=== PATIENT | female | born 1990 | race Caucasian/White ===

== ENCOUNTER 2025-01-13 07:44 | Emergency (ER) | payer OTHER, SELFPAY ==
[2025-01-13 07:49] VITALS: BP 134/92; PULSE 91; RESP 16; TEMP 37.1; O2SAT 97; BMI 31.0
--- NOTE | 2025-01-13 08:35 | ED.PSYCH ---
HPI - Psych General Chief Complaint: Psychiatric Symptoms Stated Complaint: depression Time Seen by Provider: 01/13/25 08:00 Source: patient and old records reviewed Mode of arrival: ambulatory Limitations: no limitations History of Present Illness ED Provider: BROOKE HPI Narrative: 34 yo female with PMH of depression here with worsening symptosm and making statements such as the world would be better off without her. No hx of self harm. She reports negative people at her new job are bringing her down and causing this. She was recently treated for R foot avulsion injury and is in boot. No other others MD complaint: feels depressed Onset (ago): week(s) Duration: constant History of same: Yes Relieving factors: none Context: significant life stressor Associated psychiatric symptoms: depression Associated symptoms: denies other symptoms Treatments prior to arrival: none Related Data Home Medications ?Medication ?Instructions ?Recorded ?Confirmed sertraline 100 mg tablet 100 mg PO DAILY 01/13/25 01/13/25 Allergies Allergy/AdvReac Type Severity Reaction Status Date / Time No Known Allergies Allergy Verified 01/13/25 07:49 Review of Systems Review of Systems: Constitutional : No Fever, No Chills ENT/Mouth : No Ear Pain, No Nasal Congestion, No sore throat Eyes: No Eye Pain, No Swelling, No Redness Cardiovascular : No Chest Pain, No SOB Respiratory : No Cough, No Sputum, No Dyspnea Gastrointestinal : No Nausea, No Vomiting, No Diarrhea, No Hematochezia, No Melena Genitourinary : No Dysuria, No Urinary Frequency, No Hematuria Musculoskeletal : No Myalgias Skin : No Skin Lesions, No rash Neuro : No Weakness, No Numbness, No Paresthesias, No Dizziness, No Headache Psych : positive Anxiety, positive Depression, no SI/HI Heme/Lymph: No Lymphadenopathy Endocrine : No Polyuria, No Polydipsia All other systems reviewed and are negative [facility] Past Medical History Attestation statement: The following information was validated with the patient. Source: old records reviewed Medical History Depression Social History Social History (Updated 01/13/25 @ 08:52 by Maribel Berrios DO) Patient Tobacco Use Status: Never used Tobacco Smoked in Last 30 Days: No Use of substances other than those prescribed or required for medical reasons: No Advance Directives: No Advance Directives Information Provided: Yes Patient : No Physical Exam Vital Signs: Vital Signs: Last Vital Signs Temp 98.8 F 01/13/25 07:49 Pulse 91 01/13/25 07:49 Resp 16 01/13/25 07:49 BP 134/92 H 01/13/25 07:49 Pulse Ox 97 01/13/25 07:49 O2 Del Method Room Air 01/13/25 07:49 BMI result Body Mass Index 31.0 Appearance: Alert. Oriented X3. No acute distress. Eyes: Pupils equal, round and reactive to light. ENT: Pharynx normal. Neck: Normal inspection. Neck supple. CVS: Normal heart rate and rhythm. Pulses normal. Respiratory: No respiratory distress. Breath sounds normal. Abdomen: Soft and nontender. Skin: Skin warm and dry. Normal skin color. Normal skin turgor. Extremities: No lower extremity edema. No calf ttp R foot walking boot Neuro: Oriented X 3. No motor deficit. No sensory deficit. CN2-12 intact Course Course Course Narrative: Time: 10:48 Date: 01/13/25 Provider: Maribel Berrios DO Physician observation ended at 1048am. Patient has been cleared for discharge by the CARE team. Will follow up as an outpatient. partial hospitalization program Medical Decision Making Medical Decision Making [facility] Narrative: 34 yo female with PMH of depression here with worsening thoughts of depression and passive SI related to job - no medical concerns is in R walking boot for avulsion fracture but doing well at this time labs and CARE team consult. Differential Diagnosis Differential Diagnoses: The differential diagnosis associated with the presentation includes depression, SI Admission/Observation Consideration of admission/observation: Escalation of care including admission/observation considered physician observation started at 840am pending CARE team Consult Healthcare Provider Management of the patient was discussed with: Behavioral Health Provider Lab Data [facility] Lab Attestation statement: I reviewed the patient's lab results. urine has no bacteria and no nitrate she has no urinary symptoms will wait on culture 01/13/25 08:52 01/13/25 08:52 Labs: Lab Results 01/13/25 01/13/25 Range/Units 08:34 08:52 WBC 4.6 L (4.8-10.8) X10*3/uL RBC 4.63 (4.20-5.50) X10*6/uL Hgb 13.5 (12.0-16.0) g/dl Hct 40.3 (37.0-47.0) % MCV 87.0 (80.0-98.0) fL MCH 29.2 (27.0-33.0) pg MCHC 33.5 (31.0-35.0) g/dl RDW 12.6 (11.0-16.0) % Plt Count 237 (160-400) X10*3/uL MPV 10.8 (9.4-12.3) fL Absolute Nucleated RBC 0.000 (0.0-0.012) X10*3/uL Nucleated RBC % (auto) 0.0 (0.0-0.2) /100WBC Sodium 139 (135-145) mmol/L Potassium 3.8 (3.3-5.1) mmol/L Chloride 110 H (96-108) mmol/L Carbon Dioxide 23 (22-29) mmol/L Anion Gap 10 L (12-20) BUN 13 (9-16) mg/dL Creatinine 0.70 (0.5-1.4) mg/dL Estim Creat Clear Calc 131.6 Estimated GFR > 60 Random Glucose 124 H (60-115) mg/dL Calcium 11.0 H (8.4-10.2) mg/dL Urine Color Yellow Urine Appearance Clear Urine pH 5.5 (5.0-9.0) Ur Specific [place] 1.025 (1.005-1.025) Urine Protein Trace (Neg-Trace) mg/dL Urine Glucose (UA) Negative (Negative) mg/dL Urine Ketones Trace (Negative) mg/dL Urine Blood Trace H (Negative) Urine Nitrite Negative (Negative) Ur Leukocyte Esterase Moderate (2+) H (Negative) Urine RBC 3-5 H (0-2) /HPF Urine WBC >50 H (0-5) /HPF Ur Squamous Epith Cells 0-2 (0-2) /HPF Urine Bacteria None Seen (None Seen) Hyaline Casts 0-2 (0-2) /LPF Urine Test NEGATIVE (NEGATIVE) Urine Opiates Screen Not Detected (Not Detect) Ur Buprenorphine Scrn Not Detected (Not Detect) ng/mL Ur Oxycodone Screen Not Detected (Not Detect) ng/mL Urine Methadone Screen Not Detected (Not Detect) ng/mL Urine Fentanyl Screen Not Detected (Not Detect) Ur Barbiturates Screen Not Detected (Not Detect) Ur Phencyclidine Scrn Not Detected (Not Detect) Ur Amphetamines Screen Not Detected (Not Detect) U Benzodiazepines Scrn Not Detected (Not Detect) Urine Cocaine Screen Not Detected (Not Detect) U Marijuana (THC) Screen Not Detected (Not Detect) External Record Review External record reviewed: Outpatient record Discharge Plan Discharge Clinical Impression: Depression Qualifiers: Depression Type: unspecified Qualified Code(s): F32.A - Depression, unspecified Patient Disposition: Home, Self-Care Instructions: Depression (ED) Additional Instructions: You were seen in our Emergency Department today for treatment of a behavioral health issue. It is important after your visit that you follow up with either your behavioral health provider or a primary care doctor within 7 days.? If you have trouble finding a therapist you can reach out to [address] [phone] The National Suicide and Crisis Lifeline can be reached 7 days a week 24 hours a day.? Call 988 to speak with someone.? Return for any worsening symptoms or concerns such as thoughts of self harm or harm to others. Please call 911 if you feel your mental health is worsening.? Prescriptions: No Action sertraline 100 mg tablet 100 mg PO DAILY Stand Alone Forms: Work/School Release Interventions: [place]-Suicide Risk Severity Scale Last Done: 01/13/25 09:39 Print Language: Algerian
[2025-01-13 08:50] LABS: Appearance Urine Clear; Color Urine Yellow; Glucose Urine UA Negative (Negative); Leukocyte Esterase Urine Moderate (2+) (Negative); Nitrite Urine Negative (Negative); PH 5.5 (5.0-9.0); Specific Gravity - Urine 1.025 (1.005-1.025); UMIC TRIGGER UACC YES; Urine Blood Trace (Negative); Urine Ketones Trace mg/dL (Negative); Urine Protein Trace mg/dL (Neg-Trace)
[2025-01-13 08:51] LABS: UPreg QC Valid YES; Urine Pregnancy NEGATIVE (NEGATIVE)
[2025-01-13 08:55] LABS: Bacteria Urine None Seen (None Seen); Hyaline Casts Urine 0-2 /LPF (0-2); Squamous Epithelial Cell Urine 0-2 /HPF (0-2); UACC Culture Trigger YES; WBC Urine >50 /HPF (0-5)
--- OUTSIDE RECORDS SUMMARY | 2025-01-13 08:58 | XMS_ITS | Encounter Summary ---
Author Organization [facility] Address [address] [place] [address] Care Team Providers Care Director Of Grants Name Role Phone Physician, Pcp Unknown Primary Care Provider Claudia vailable Encounter Details Date Type Department Care Team (Late Contact Info) Description 12/17/2024 Lab Requisition [facility] - Main Lab [address] [place] [address] Abimael Rivers MD [address] [address] Hematuria, unspecified Social History Tobacco Use Types Packs/Day Years Used Date Smoking Tobacco: Never Assessed Comments No Sex and Gender Information Value Date Recorded Sex Assigned at Female 12/13/2024 5:27 PM EDT Legal Sex Female 1:47 PM EDT Gender Identity Female 12/13/2024 5:27 PM EDT Sexual Orientation Choose not to disclose 2024 5:27 PM EDT documented as of this encounter Plan of Treatment Upcoming Encounters Date Type Department Care Team (Late st Contact Info) Description 02/02/2025 8:00 AM EDT Appointment [facility] Scan [address] [place] [address] documented as of this encounter Procedures Procedure Name Priority Date/Time Associated Diagnosis Comments CULTURE URINE Routine 12/17/2024 2:39 PM EDT Hematuria, unspecified documented in this encounter Results * Culture urine (12/17/2024 2:39 PM EDT) Culture, Urine 50,000-99,000 CFU/mL Mixed urogenital samm, no uropathogens present. Suggest repeat specimen if clinically indicated. 12/18/2024 2:54 PM EDT [facility] Urine Urine specimen from urethra / Unknown 12/17/2024 2:39 PM EDT 12/17/2024 6:24 PM EDT us Abimael Rivers MD LAB MICROBIOLOGY - GENER AL ORDERABLES Final Result [facility] [address] [place] [address], documented in this encounter Visit Diagnoses Diagnosis Hematuria, unspecified documented in this encounter Care Teams Director Of Grants Relationship Specialty Start Date End Date Physician, Pcp Unknown PCP - General 12/13/24 documented as of this encounter
--- OUTSIDE RECORDS SUMMARY | 2025-01-13 08:58 | XMS_ITS | Encounter Summary ---
Author Organization [facility] Address [address] [place] [id number] Phone Care Team Providers Care Manager Photo Name Role Phone Adamaris Wolf DO Primary Care Provider [phone] Encounter Details Date Type Department Care Team (Late st Contact Info) Description 05/15/2017 Conversion Encounter [facility] [place] [address] [place] [address] Social History Tobacco Use Types Packs/Day Years Used Date Smoking Tobacco: Never Comments:Never smoker Comments Unknown Sex and Gender Information Value Date Recorded Sex Assigned at Not on file Legal Sex Female 4:36 PM EDT Gender Identity Not on file Sexual Orientation Not on file documented as of this encounter Plan of Treatment Not on file documented as of this encounter Visit Diagnoses Not on filedocumented in this encounter Care Teams Manager Photo Relationship Specialty Start Date End Date Adamaris Wolf DO [address] [place] [address] PCP - General 05/09/17 01/14/23 documented as of this encounter
--- OUTSIDE RECORDS SUMMARY | 2025-01-13 08:58 | XMS_ITS | Clinical Summary ---
Author Organization [facility] Address [address] [place] [address] Phone Care Team Providers Care Media Reporter Name Role Phone Unavailable Primary Care Provider Unavailabl e Immunizations Immunization Administration Dates Next Due DTP 05/09/1997, 3,02/08/1992,12/09,1991 Hep B, ped/adol 05/09/1997,1996,01/19/1996 Hib (PRP-T) 11/13/1992, 2,1991,10/11 Influenza Split 07/12/2011 Influenza, injectable, trivalent 07/24/2007 MMR 01/19/1996,11/13/1992 Meningococcal Conj (Menactra) MCV4P 07/24/2007 OPV 05/09/1997, 3,1991,10/11 Td (adult) (MBL), 2 Lf tetan us toxoid, PF, adsorbed 02/03/2003 Tdap 07/24/2007 Varicella 08/03/2008,12/06/1999 Family History Relation Name Status Comments Brother Brother: Autism Father Alive Father: Alive a nd well Mother Mother: depress ion Social History Tobacco Use Types Packs/Day Years Used Date Smoking Tobacco: Never Comments:Never smoker Comments Unknown Sex and Gender Information Value Date Recorded Sex Assigned at Not on file Legal Sex Female 4:36 PM EDT Gender Identity Not on file Sexual Orientation Not on file Last Filed Vital Signs Vital Sign Reading Time Taken Comments Blood Pressure 112/74 07/12/2011 12:00 AM EDT Pulse 80 07/12/2011 12:00 AM EDT Temperature 36.2 ??C (97.1 ??F) 07/12/2011 12:00 AM E DT Respiratory Rate - - Oxygen Saturation - - Inhaled Oxygen Concentration - - Weight 67.6 kg (149 lb) 07/12/2011 12:00 AM EDT Height 166.9 cm (5' 5.7 ) 07/12/2011 12:00 AM ED T Body Mass Index 24.27 07/12/2011 12:00 AM EDT Plan of Treatment Health Maintenance Due Date Last Done Comments DTaP,Tdap,and Td Vaccines (7 - Td or Tdap) 07/24/2017 07/24/2007, 02/03/2003, 05/09/1997, Additional history exists Influenza Vaccines (#1) 2024 07/12/2011, 07/24 COVID-19 Vaccine ( season) 2024 HIB Vaccines Completed 11/13/1992, 01/27, 1991, Additional history exists MMR Vaccines Completed 01/19/1996, 11/13/1992 Hepatitis B Vaccines Completed 05/09/1997, 1996, 01/19/1996 IPV Vaccines Completed 05/09/1997, 01/27, 1991, Additional history exists Meningococcal Vaccine Aged Out 07/24/2007 No ortiz qi eligible based on patient's age to complete this topic Varicella Vaccines Completed 08/03/2008, 12/06/1999 HPV Vaccines Aged Out No longer eligi ble based on patient's age to complete this topic Hepatitis A Vaccines Aged Out No long er eligible based on patient's age to complete this topic Men B Vaccine Aged Out No longer elig ible based on patient's age to complete this topic Pneumococcal Vaccine Aged Out No long er eligible based on patient's age to complete this topic
--- OUTSIDE RECORDS SUMMARY | 2025-01-13 08:58 | XMS_ITS | Encounter Summary ---
Author Organization [facility] Address [address] [place] [phone] Phone Care Team Providers Care Beamer Helper Name Role Phone Adamaris Wolf DO Primary Care Provider [phone] Encounter Details Date Type Department Care Team (Late st Contact Info) Description 06/28/2013 Documentation EM Family Medicine [address] [place] [address] Family Medicine, Physician [address] [place], [place] [id number] Social History Tobacco Use Types Packs/Day Years Used Date Smoking Tobacco: Never Assessed Comments Unknown Sex and Gender Information Value Date Recorded Sex Assigned at Not on file Legal Sex Female 4:36 PM EDT Gender Identity Not on file Sexual Orientation Not on file documented as of this encounter Plan of Treatment Not on file documented as of this encounter Visit Diagnoses Not on filedocumented in this encounter Care Teams Beamer Helper Relationship Specialty Start Date End Date Adamaris Wolf DO [address] [place] [id number] PCP - General 05/09/17 01/14/23 documented as of this encounter
--- OUTSIDE RECORDS SUMMARY | 2025-01-13 08:59 | XMS_ITS | Clinical Summary ---
Author Organization [facility] Address [address] [place] [address] Phone Care Team Providers Care Welder Tech Name Role Phone Physician, Pcp Unknown Primary Care Provider Claudia vailable Allergies No known active allergies Medications naproxen (NAPROSYN) 500 mg tablet Take 1 tablet (500 mg total) by mouth 2 (two) times a day with meals for 7 days. 14 tablet 5 12/21/19 25 tamsulosin (FLOMAX) 0.4 mg 24 hr capsule Take 1 capsule (0.4 mg total) by mouth 1 (one) time each day for 10 days. Capsules should be taken 30 minutes following the same meal each day. 10 capsule 5 12/24/19 25 Encounters Date Type Department Care Team Description 12/17/2024 Lab Requisition [facility] - Main Lab [address] [place] [address] Abimael Rivers MD Hematuria, unspecified 12/13/2024 5:07 PM EDT - 12/13/2024 8:06 PM EDT Emergency [facility] Emergency [address] [place] [address] Right flank pain (Primary Dx) Discharge Disposition: Home or Self Care from Last 3 Months Medical History Medical History Date Comments Kidney stone Adhd Social History Tobacco Use Types Packs/Day Years Used Date Smoking Tobacco: Never Assessed Comments No Sex and Gender Information Value Date Recorded Sex Assigned at Female 12/13/2024 5:27 PM EDT Legal Sex Female 1:47 PM EDT Gender Identity Female 12/13/2024 5:27 PM EDT Sexual Orientation Choose not to disclose 2024 5:27 PM EDT Obstetrics History Last Filed Vital Signs Vital Sign Reading Time Taken Comments Blood Pressure 132/101 12/13/2024 6:23 PM EDT Pulse 72 12/13/2024 6:23 PM EDT Temperature 36.8 ??C (98.2 ??F) 12/13/2024 6:23 PM ED T Respiratory Rate 16 12/13/2024 6:23 PM EDT Oxygen Saturation 97% 12/13/2024 6:23 PM EDT Inhaled Oxygen Concentration - - Weight 86.2 kg (190 lb) 12/13/2024 1:52 PM EDT Height 170.2 cm (5' 7 ) 12/13/2024 1:52 PM EDT Body Mass Index 29.76 12/13/2024 1:52 PM EDT Plan of Treatment Upcoming Encounters Date Type Department Care Team (Late st Contact Info) Description 02/02/2025 8:00 AM EDT Appointment [facility] CT Scan [address] [place] [address] Health Maintenance Due Date Last Done Comments Pneumococcal Vaccine: Pediatrics (0 to 5 Years) and At-Risk Patients (6 to 64 Years) (1 of 2 - PCV) 2010 Cervical Cancer Screening: Pap Smear 2012 COVID-19 Vaccine (6 - Pfizer risk 2023- season) 2024 06/02/2024, 08/25/2022, 09/14/2021, Additional history exists Depression Screening 12/13/2024 HIV Screening 12/13/2024 Social Influencers of Health Screening 12/13/2024 DTaP,Tdap,and Td Vaccines (9 - Td or Tdap) 05/01/2030 05/01/2020, 07/24/2007, 02/03/2003, Additional history exists HIB Vaccines Completed 11/13/1992, 10/30, 02/13/1992, Additional history exists MMR Vaccines Completed 01/19/1996, 10/30, 1991 Hepatitis B Vaccines Completed 05/09/1997, 1996, 01/19/1996, Additional history exists IPV Vaccines Completed 05/09/1997, 01/27, 11/13/1992, Additional history exists Meningococcal ACWY Vaccine Aged Out 07/24/2007 N o longer eligible based on patient's age to complete this topic Varicella Vaccines Completed 08/03/2008, 12/06/1999 Influenza Vaccine Completed 06/02/2024, , 08/25/2022, Additional history exists Hepatitis C Screening Completed 07/15/2024 HPV Vaccines Aged Out No longer eligi ble based on patient's age to complete this topic Hepatitis A Vaccines Aged Out No long er eligible based on patient's age to complete this topic Meningococcal B Vaccine Aged Out No l onger eligible based on patient's age to complete this topic RSV Immunization Patients Under 20 months Aged Out No longer eligible based on patient's age to complete this topic Procedures Procedure Name Priority Date/Time Associated Diagnosis Comments CULTURE URINE Routine 12/17/2024 2:39 PM EDT Hematuria, unspecified US RETROPERITONEAL COMPLETE STAT 12/13/2024 7:02 PM EDT POC , URINE DIAGNOSTIC STAT 12/13/2024 2:18 PM EDT STEVENS URINE CULTURE TUBE STAT 12/14/19 2:18 PM EDT URINALYSIS WITH REFLEX MICROSCOPIC AND CULTURE STAT 12/13/2024 2:18 PM EDT URINALYSIS WITH REFLEX MICROSCOPIC AND CULTURE STAT 12/13/2024 2:18 PM EDT CULTURE URINE STAT 12/13/2024 2:18 PM EDT CBC WITH AUTO DIFFERENTIAL STAT 12/13/2024 1:58 PM EDT COMPREHENSIVE METABOLIC PANEL STAT 12/13/2024 1:58 PM EDT CBC AND DIFFERENTIAL STAT 12/13/2024 1:58 PM EDT from Last 3 Months Results * Culture urine (12/17/2024 2:39 PM EDT) Only the most recent of2 resultswithin the time period is included. Culture, Urine 50,000-99,000 CFU/mL Mixed urogenital samm, no uropathogens present. Suggest repeat specimen if clinically indicated. 12/18/2024 2:54 PM EDT [facility] Urine Urine specimen from urethra / Unknown 12/17/2024 2:39 PM EDT 12/17/2024 6:24 PM EDT us Abimael Rivers MD LAB MICROBIOLOGY - GENER AL ORDERABLES Final Result [facility] [address] [place] [address], [place] [phone] * US Retroperitoneal Complete (12/13/2024 7:02 PM EDT) Anatomical Region Laterality Modality Body Ultrasound 12/13/2024 7:39 PM EDT Impressions 12/13/2024 7:39 PM EDT 1. Normal kidneys. This document has been electronically signed by: Sourav Torres MD on 12/13/2024 19:39:01 Narrative 12/13/2024 7:39 PM EDT INDICATION: h/o kidney stones, right flank pain US Renal Comparison: None Findings: Right kidney normal size and echotexture, 10.4 cm length. Left kidney normal size and echotexture, 12.1 cm length. No collecting system dilatation of either kidney. Normal color Doppler. Urinary bladder is unremarkable. Bilateral ureteral jets are visualized. Procedure Note Sourav Torres MD - 12/13/2024 INDICATION: h/o kidney stones, right flank pain US Renal Comparison: None Findings: Right kidney normal size and echotexture, 10.4 cm length. Left kidney normal size and echotexture, 12.1 cm length. No collecting system dilatation of either kidney. Normal color Doppler. Urinary bladder is unremarkable. Bilateral ureteral jets are visualized. IMPRESSION: 1. Normal kidneys. This document has been electronically signed by: Sourav Torres MD on 12/13/2024 19:39:01 Simon GARCIA [facility] PROCEDURES Final R esult * (ABNORMAL) Urinalysis with reflex microscopic and culture (12/13/2024 2:18 PM EDT) Specific Hecker Urine 1.021 1.003 - 1.030 LAB URINALYSIS - AUTOMATED METHOD 12/13/2024 3:53 PM [facility] pH, Urine 5.5 5.0 - 8.0 pH LAB URINALYSIS - AUTOMATED METHOD 12/13/2024 3:53 PM [facility] Leukocytes, Urine Small(A) Negative LAB URINALYSIS - AUTOMATED METHOD 12/13/2024 3:53 PM [facility] Nitrite, Urine Negative Negative LAB URINALYSIS - AUTOMATED METHOD 12/13/2024 3:53 PM [facility] Protein, Urine Trace <=Trace mg/dL LAB URINALYSIS - AUTOMATED METHOD 12/13/2024 3:53 PM [facility] Glucose, Urine Negative Negative mg/dL LAB URINALYSIS - AUTOMATED METHOD 12/13/2024 3:53 PM [facility] Ketones, Urine Trace(A) Negative mg/dL LAB URINALYSIS - AUTOMATED METHOD 12/13/2024 3:53 PM [facility] Urobilinogen, Urine 0.2 0.2 - 1.0 mg/dL LAB URINALYSIS - AUTOMATED METHOD 12/13/2024 3:53 PM [facility] Bilirubin, Urine Negative Negative LAB URINALYSIS - AUTOMATED METHOD 12/13/2024 3:53 PM [facility] Blood, Urine Negative Negative LAB URINALYSIS - AUTOMATED METHOD 12/13/2024 3:53 PM [facility] RBC, Urine 4.3(H) 0 - 4 /HPF LAB URINALYSIS - AUTOMATED METHOD 12/13/2024 3:53 PM EDT [facility] WBC, Urine 11.6(H) 0 - 4 /HPF LAB URINALYSIS - AUTOMATED METHOD 12/13/2024 3:53 PM EDT [facility] Squamous Epithelial, Urine 43 0 - 60 /LPF LAB URINALYSIS - AUTOMATED METHOD 12/13/2024 3:53 PM EDT [facility] Bacteria, Urine Negative Negative /HPF LAB URINALYSIS - AUTOMATED METHOD 12/13/2024 3:53 PM EDT [facility] Hyaline Casts, Urine 0.4 0 - 3 /LPF LAB URINALYSIS - AUTOMATED METHOD 12/13/2024 3:53 PM EDT [facility] Urine Urine specimen obtained by clean catch procedure / Unknown Non-blood Collection / Unknown 12/13/2024 2:18 PM EDT 12/13/2024 2:47 PM EDT Amandeep Chapa MD LAB URINE ORDERABLES Joselyn l Result Performing Organization Address City/[facility]/ZIP Co de Phone Number [facility] [address] [place] [address], [place] [phone] * Stevens urine culture tube (12/13/2024 2:18 PM EDT) Extra Tube Hold for add-ons. 12/13/2024 4:01 PM EDT [facility] Comment:Auto resulted. Urine Urine specimen obtained by clean catch procedure / Unknown Non-blood Collection / Unknown 12/13/2024 2:18 PM EDT 12/13/2024 2:47 PM EDT us Amandeep Chapa MD LAB URINE ORDERABLES Joselyn l Result [facility] [address] [place] [address], [place] [phone] * POC , urine manually resulted (12/13/2024 2:18 PM EDT) Pathologist [facility] HCG, Ur POC Negative Negative POC hCG Int QC Pass? Yes Yes Urine Urine specimen obtained by clean catch procedure / Unknown 12/13/2024 2:18 PM EDT Amandeep Chapa MD POINT OF CARE TEST ENTER/ EDIT ORDERABLES Final Result * (ABNORMAL) CBC auto differential (12/13/2024 1:58 PM EDT) [facility] WBC 5.8 4.8 - 10.8 K/mcL LAB HEMETOLOGY METHOD 12/13/2024 2:57 PM EDT [facility] RBC 4.90(H) 3.80 - 4.80 M/mcL LAB HEMETOLOGY METHOD 12/13/2024 2:57 PM EDT [facility] Hemoglobin 14.0 11.5 - 16.0 g/dL LAB HEMETOLOGY METHOD 12/13/2024 2:57 PM EDT [facility] Hematocrit 43.0 35.0 - 47.0 % LAB HEMETOLOGY METHOD 12/13/2024 2:57 PM EDT [facility] MCV 88.5 79.0 - 98.0 FL LAB HEMETOLOGY METHOD 12/13/2024 2:57 PM EDT [facility] MCH 28.8 27.0 - 32.0 pcg LAB HEMETOLOGY METHOD 12/13/2024 2:57 PM EDT [facility] MCHC 32.6 32.0 - 37.0 g/dL LAB HEMETOLOGY METHOD 12/13/2024 2:57 PM EDT [facility] RDW 12.5 11.0 - 15.0 % LAB HEMETOLOGY METHOD 12/13/2024 2:57 PM EDT [facility] Platelets 263 130 - 400 K/mcL LAB HEMETOLOGY METHOD 12/13/2024 2:57 PM EDT [facility] MPV 11.3(H) 7.0 - 11.0 FL LAB HEMETOLOGY METHOD 12/13/2024 2:57 PM EDT [facility] NRBC 0.0 <1.0 % LAB HEMETOLOGY METHOD 12/13/2024 2:57 PM EDT [facility] NRBC Absolute 0.00 <0.10 K/mcL LAB HEMETOLOGY METHOD 12/13/2024 2:57 PM EDT [facility] Neutrophils Relative 64.6 % LAB HEMETOLOGY METHOD 12/13/2024 2:57 PM EDT [facility] Lymphocytes Relative 25.5 % LAB HEMETOLOGY METHOD 12/13/2024 2:57 PM EDT [facility] Monocytes Relative 7.9 % LAB HEMETOLOGY METHOD 12/13/2024 2:57 PM EDT [facility] Eosinophils Relative 1.0 % LAB HEMETOLOGY METHOD 12/13/2024 2:57 PM EDT [facility] Basophils Relative 0.7 % LAB HEMETOLOGY METHOD 12/13/2024 2:57 PM EDT [facility] Immature Granulocytes Relative 0.3 % LAB HEMETOLOGY METHOD 12/13/2024 2:57 PM EDT [facility] Neutrophils Absolute 3.75 1.50 - 7.00 K/mcL LAB HEMETOLOGY METHOD 12/13/2024 2:57 PM EDT [facility] Lymphocytes Absolute 1.48 1.00 - 5.00 K/mcL LAB HEMETOLOGY METHOD 12/13/2024 2:57 PM EDT [facility] Monocytes Absolute 0.46 0.20 - 1.00 K/mcL LAB HEMETOLOGY METHOD 12/13/2024 2:57 PM EDT [facility] Eosinophils Absolute 0.06 0.00 - 0.50 K/mcL LAB HEMETOLOGY METHOD 12/13/2024 2:57 PM EDT [facility] Basophils Absolute 0.04 0.00 - 0.20 K/mcL LAB HEMETOLOGY METHOD 12/13/2024 2:57 PM EDT [facility] Immature Granulocytes Absolute 0.02 0.00 - 0.03 K/mcL LAB HEMETOLOGY METHOD 12/13/2024 2:57 PM EDT [facility] Blood Venous blood specimen / Unknown Venipuncture / Unknown 12/13/2024 1:58 PM EDT 12/13/2024 2:46 PM EDT us Amandeep Chapa MD LAB BLOOD ORDERABLES Joselyn l Result [facility] [address] [place] [address], [place] [phone] * (ABNORMAL) Comprehensive metabolic panel (12/13/2024 1:58 PM EDT) Sodium 137 133 - 145 mmol/L LAB CHEMISTRY METHOD 12/13/2024 3:30 PM [facility] Potassium 4.7 3.5 - 5.5 mmol/L LAB CHE[facility]STR[facility] Chloride 105 96 - 110 mmol/L LAB CHEMISTRY METHOD 12/13/2024 3:30 PM EDT [facility] CO2 26 21 - 32 mmol/L LAB CHEMISTRY METHOD 12/13/2024 3:30 PM EDT [facility] Anion Gap 6 3 - 11 LAB CHEMISTRY METHOD 12/13/2024 3:30 PM EDT [facility] Glucose 98 70 - 100 mg/dL LAB CHEMISTRY METHOD 12/13/2024 3:30 PM EDT [facility] BUN 12 5 - 25 mg/dL LAB CHEMISTRY METHOD 12/13/2024 3:30 PM [facility] Creatinine 0.83 0.50 - 1.10 mg/dL LAB CHEMISTRY METHOD 12/13/2024 3:30 PM [facility] eGFR 96 >=60 mL/min/1. 73m2 LAB CHEMISTRY METHOD 12/13/2024 3:30 PM [facility] Comment:Calculation based on the??Chronic Kidney Disease Epidemiology Collaboration (CKD-EPI) equation refit??without adjustment for race. BUN/Creatinine Ratio 14.5 LAB CHEMISTRY METHOD 12/13/2024 3:30 PM [facility] Calcium 11.8(H) 8.5 - 10.5 mg/dL LAB CHEMISTRY METHOD 12/13/2024 3:30 PM [facility] AST (SGOT) 20 10 - 42 unit/L LAB CHEMISTRY METHOD 12/13/2024 3:30 PM [facility] ALT (SGPT) 29 10 - 60 unit/L LAB CHEMISTRY METHOD 12/13/2024 3:30 PM [facility] Alkaline Phosphatase 99 42 - 121 unit/L LAB CHEMISTRY METHOD 12/13/2024 3:30 PM [facility] Total Protein 8.2(H) 6.0 - 8.0 g/dL LAB CHEMISTRY METHOD 12/13/2024 3:30 PM [facility] Albumin 3.9 3.2 - 5.0 g/dL LAB CHEMISTRY METHOD 12/13/2024 3:30 PM [facility] Total Bilirubin 0.3 0.0 - 1.4 mg/dL LAB CHEMISTRY METHOD 12/13/2024 3:30 PM [facility] Blood Venous blood specimen / Unknown Venipuncture / Unknown 12/13/2024 1:58 PM EDT 12/13/2024 2:46 PM EDT us Amandeep Chapa MD LAB BLOOD ORDERABLES Joselyn l Result [facility] [address] [place] [address], [place] [phone] from Last 3 Months Insurance MEDICAID - [place] [facility] [address] [place] [address] Care Teams Welder Tech Relationship Specialty Start Date End Date Physician, Pcp Unknown PCP - General 12/13/24
--- OUTSIDE RECORDS SUMMARY | 2025-01-13 08:59 | XMS_ITS | Encounter Summary ---
Author Organization [facility] Address [address] [place] [phone] Phone Care Team Providers Care Nutrition Director Name Role Phone Adamaris Wolf DO Primary Care Provider [phone] Encounter Details Date Type Department Care Team (Late st Contact Info) Description 07/16/2011 Documentation EM Family Medicine [address] [place] [address] Family Medicine, Physician [address] [place], [place] [id number] Social History Tobacco Use Types Packs/Day Years [...] on filedocumented in this encounter Care Teams Nutrition Director Relationship Specialty Start Date End Date Adamaris Wolf DO [address] [place] [id number] PCP - General 05/09/17 01/14/23 documented as of this encounter
--- OUTSIDE RECORDS SUMMARY | 2025-01-13 08:59 | XMS_ITS | Referral Summary ---
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 Hepatitis B Vaccine, Pediatr ic or Pediatric/Adolescent Dosage 05/09/1997,1996,01/19/1996,09/08 Influenza trivalent, PF MDCK (FLUCELVAX) vaccine 0.5 mL IM (for age 6 mo and older) 06/02/2024 Influenza, Injectable, Quadr ivalent, Preservative Free 08/18/2023,08/25/2022,05/23/2020 Influenza, Quadrivalent, Rec ombinant, Injectable, PF 07/19/2021 Influenza, Trivalent, MDV, Injectable 07/12/2011 ,07/24/2007 Influenza, Unspecified 06/13/2020 Measles, Mumps, and Rubella Vaccine 01/19/1996,0 11/13/1992,1991 Meningococcal Polysaccharide (Groups A, C, Y and W-135) Diphtheria Toxoid Conjugate Vaccine (MCV4P) 07/24/2007 Tetanus Toxoid, Reduced Diph theria Toxoid, and Acellular Pertussis Vaccine, Adsorbed 05/01/2020,07/24/2007 Tetanus and Diphtheria Toxoi ds, Adsorbed, Preservative Free (2 Lf of Tetanus Toxoid and 2 Lf of Diphtheria Toxoid) 02/03/2003 Trivalent Poliovirus Vaccine , Live, Oral 05/09/1997,02/07/1993,1991,10/11 Varicella Virus Vaccine 08/03/2008,12/06/1999 Social History Tobacco Use Types Packs/Day Years Used Date Smoking Tobacco: Never Smokeless Tobacco: Never Tobacco Cessation:Counseling Given: Not Answered Alcohol Use Standard Drinks/Week Comments Yes 1 (1 standard drink = 0.6 oz pur e alcohol) once per month [facility] Utilities Answer Date Recorded In the past 12 months has e [employer], gas, oil, or water [employer] threatened to shut off services in your home? No 10/05/2024 Hunger Vital Sign Answer Date Recorded Within the past 12 months, y ou worried that your food would run out before you got the money to buy more. Patient declined Within the past 12 months, t he food you bought just didn't last and you didn't have money to get more. Patient declined 03/2025 Transportation Answer Date Recorded In the past 12 months, has l ack of reliable transportation kept you from medical appointments, meetings, work or from getting things needed for daily living? No 10/05/2024 Housing Answer Date Recorded Housing Risk Low 1 10/05/2024 Housing Risk Medium 1 10/05/2024 Housing Risk High Not on file 10/05/2024 What is your living situation today? 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 Not on file Not on file Not on file Last Filed Vital Signs Vital Sign Reading Time Taken Comments Blood Pressure 112/76 11/12/2024 10:23 AM EST Pulse 88 11/12/2024 10:23 AM EST Temperature 37 ??C (98.6 ??F) 11/12/2024 10:23 AM EST Respiratory Rate 20 10/09/2022 8:36 AM EST Oxygen Saturation 97% 11/12/2024 10:23 AM EST Inhaled Oxygen Concentration - - Weight 90.3 kg (199 lb) 11/12/2024 10:23 AM EST Height 167.6 cm (5' 6 ) 10/06/2024 2:46 PM EST Body Mass Index 32.12 10/06/2024 2:46 PM EST Plan of Treatment Not on file Procedures * Due to [place] [employer] law, this organization might not be sharing negative HIV tests. Procedure Name Priority Date/Time Associated Diagnosis Comments POCT URINALYSIS DIPSTICK, NON-INTERFACED Routine 11/12/2024 4:59 PM EST Hematuria, unspecified type POCT AUTOMATED URINALYSIS DIPSTICK Routine 11/12/2024 10:34 AM EST Hematuria, unspecified type HEPATITIS C ANTIBODY W/REFLEX TO HCV RNA, QUANTITATIVE PCR Routine 07/15/2024 4:04 PM EDT Healthcare maintenance [facility] PAP W/HPV, MRNA, REFLEX HPV 16/18/[address]/NG Routine 05/01/2023 4:25 PM EDT Cervical cancer screening from Last 3 Months or Most Recently Relevant to Health Maintenance Results * Due to [place] [employer] law, this organization might not be sharing negative HIV tests. * (ABNORMAL) POCT Urinalysis dipstick (11/12/2024 4:59 PM EST) Color, UA Yellow Yellow Clarity, UA Clear Clear Glucose, UA Negative Negative mg/dL Bilirubin, UA Negative Negative Ketones, UA Negative Negative mg/dL Spec Grav, UA 1.010 1.005 - 1.030 Blood, UA Trace-intact (A) Negative pH, UA 6.0 5.0 - 8.5 Protein, UA Negative Negative mg/dL Urobilinogen, UA 0.2 0.2 - 1.0 E.U. /dL mg/dL Nitrite, UA Negative Negative Leukocytes, UA Small(A) Negative Urine 11/12/2024 4:59 PM EST Fariba Olivier MD POINT OF CARE TEST ORDERABLES Final Result * (ABNORMAL) POCT Automated Urinalysis Dipstick, interfaced (11/12/2024 10:34 AM EST) Color, POCT Yellow Yellow, Light Yellow, Dark Yellow 11/12/2024 10:38 AM EST [facility] Clarity, POCT Clear Clear 11/12/2024 10:38 AM EST [facility] Glucose, POCT Negative Negative mg/dL 11/12/2024 10:38 AM EST [facility] Bilirubin, POCT Negative Negative 11/12/2024 10:38 AM EST [facility] Ketones, POCT Negative Negative mg/dL 11/12/2024 10:38 AM EST [facility] Specific [place], POCT 1.010 1.005 - 1.030 11/12/2024 10:38 AM EST [facility] Blood, POCT Trace-intac t(A) Negative 11/12/2024 10:38 AM EST [facility] pH, POCT 6.0 5.0 - 8.0 11/12/2024 10:38 AM EST [facility] Protein, POCT Negative Negative mg/dL 11/12/2024 10:38 AM EST [facility] Urobilinogen, POCT 0.2 0.2, 1.0 EU/dL 11/12/2024 10:38 AM EST [facility] Nitrite, POCT Negative Negative 11/12/2024 10:38 AM EST [facility] Leukocyte Esterase, POCT Small(A) Negative 11/12/2024 10:38 AM EST [facility] Urine 11/12/2024 10:3 4 AM EST 11/12/2024 10:38 AM EST us Skip Owens MD LAB POCT ORDERABLES - DEVICE Final Result [facility] [address] [place] [address], [place] * Hepatitis C Antibody w/Reflex to HCV RNA, Quantitative PCR (07/15/2024 4:04 PM EDT) Hepatitis C Antibody Interpretation Nonreactive Nonreactive 07/15/2024 8:04 PM EDT [facility] Blood Structure of peripheral vein / Unknown Venipuncture / Unknown 07/15/2024 4:04 PM EDT 07/15/2024 4:04 PM EDT us Eloise Esqueda MD LAB BLOOD ORDERABLES Final Result [facility] [address] [place] [address], [place] * [facility] Pap w/HPV, mRNA, Reflex HPV 16/18/[address]/NG (05/01/2023 4:25 PM EDT) PAP with HPV, Reflex HPV 16/18/[address]/NG See Below [employer] Comment: TIS,mRNA/rfx, CTNG ?? CLINICAL INFORMATION: ? None given ?? LMP: ? NONE GIVEN ?? PREV. PAP: ? NONE GIVEN ?? PREV. BX: ? NONE GIVEN ?? SOURCE: ? Cervix, Endocervix ?? STATEMENT OF ADEQUACY: ? Satisfactory for evaluation. ? Endocervical/transformation zone component ? present. ?? INTERPRETATION/RESULT: ? Cytology Results: Negative for intraepithelial ? lesion or malignancy. ?? COMMENT: ? This Pap test has been evaluated with computer ? assisted technology. ?? SPA RECEPTIONIST: ? DCR, CT(ASCP) ? CT screening location: [facility] ? [address] [place] [address] ? [place], [place] ??[address] ?? HPV mRNA E6/E7 ? Not Detected ? REFERENCE RANGE: Not Detected ? Methodology: Copy Operator-Mediated Amplification ? This assay detects E6/E7 viral messenger RNA (mRNA) from 14 ? high-risk HPV types (16,18,31,33,35,39,45,51,52,56,58,59,66,68). ? Cervical sources are required for HPV testing. ? If a vaginal source from a patient who has had a ? total hysterectomy with removal of cervix was ? submitted, please contact the testing laboratory ? for alternative testing options. ? For additional information, please refer to ? [email or web address]/faq/MFL835h6 ? (This link if provided for information/ ? educational purposes only.) ?? CHLAMYDIA TRACHOMATIS RNA, TMA, UROGENITAL ? NOT DETECTED ? REFERENCE RANGE: NOT DETECTED ?? NEISSERIA GONORRHOEAE RNA, TMA, UROGENITAL ? NOT DETECTED ? REFERENCE RANGE: NOT DETECTED ? EXPLANATORY NOTE: ? The Pap is a screening test for cervical cancer. It is ? not a diagnostic test and is subject to false negative ? and false positive results. It is most reliable when a ? satisfactory sample, regularly obtained, is submitted ? with relevant clinical findings and history, and when ? the Pap result is evaluated along with historic and ? current clinical information. ? The analytical performance characteristics of this ? assay, when used to test SurePath(TM) specimens have been ? determined by [employer]. The modifications have ? not been cleared or approved by the FDA. This assay has ? been validated pursuant to the CLIA regulations and is ? used for clinical purposes. ? For additional information, please refer to ? https://education.[employer]/faq/FFJ454 ? (This link is being provided for information/ ? educational purposes only.) ? Brushing Cervix uteri structure / Unknown 05/01/2023 4:25 PM EDT Angel Solares DO LAB [facility] O RDERABLES Final Result [facility] [address] [facility] 3rd [address], [place] [address], [employer] [address] [place] [address] from Last 3 Months or Most Recently Relevant to Health Maintenance Insurance [employer] Advance Directives Documents on File Type Date Recorded Patient Patrol Police Sergeant Expl anation Health Care Proxy 06/26/2023 11:56 AM Health Care Proxy 01/27/2023 4:07 PM 2022 Care Teams Attending Psychiatrist Relationship Specialty Start Date End Date Cristina Dickinson MD [address] [place] [address] [place] [address] PCP - General 03/10/24
--- OUTSIDE RECORDS SUMMARY | 2025-01-13 08:59 | XMS_ITS | Data Portability ---
Author Organization [place] - [facility] , [facility] Address [address] [facility] [address] [place] [address] Assessment Encounter Date Assessment Date Assessment LastModified by Organization Details LastModified Time 06/22/2023 06/22/2023 Recommended further evaluation via ER due to intermittent confusion and chest pain with history of sertraline medication for anxiety/depression . SORE THROAT, COUGH, NASAL CONGESTION AND FEVER: Your symptoms of sore throat, cough, nasal congestion and fever may be related to an upper respiratory illness that may take a week or 2 to resolve. A rapid Covid antigen test was performed in house with negative results. You have declined strep testing at this time. Do your best to stay healthy and keep others healthy by cleaning your hands, covering coughs, staying home when sick, and getting recommended vaccines, such as the flu vaccine. Specifically, it is recommended that you; Rest, and - Drink extra water and fluids to stay hydrated. - Use cool mist vaporizer or saline nasal spray for nasal congestion - Ice chips, lozenges or throat spray may help sore throat - Honey or OTC cough medicine may suppress your cough - May take acetaminophen (Tylenol) and/or Ibuprofen (Motrin or Advil) as needed if not contraindicated for control of discomfort, body aches, and/or fevers. - Other combination daytime/nighttime OTC medications may help you feel better. LEFT ANKLE SPRAIN: Rest and elevate the left ankle. Avoid sports or activities where you may re-injure the left ankle while it is still healing. A re-injury will take even longer to get better! Cold packs right now and moist heat after 48hrs. Take pain medications as needed if not contraindicated. Follow up with eating disorder specialist if the pain is not improving within 5-7 days. X-rays were not performed at this time due to lack of an X-ray restoration technician. Recommend to follow-up with Primary Care Physician as needed. [email or web address] Not available 06/22/2023 23:32:30 04/29/2024 04/29/2024 -rapid strep negative -pending throat culture to r/o -advised to do salt gargles, take ibuprofen Q4-6h PRN for pain relief, rest, and hydrate -lozenges and hot water with honey for symptom relief if desired -return to clinic if sore throat worsens in the next 3-5 days or go to ED if develops muffled voice, trouble swallowing or drooling [email or web address] Not available 04/29/2024 18:38:59 Plan of Treatment Reminders Order Date Submit Date Provider Last Modified By Organization Details Last Modified Time Details Appointments None recorded. Lab unlisted lab - moraxella catarrhali s (respirato ry) 2023 024 LILY [facility], [address], [place], [address], 4 16:59:39 streptococ cus group A RNA 2023 024 LILY [facility], [address], [place], [address], 4 16:59:44 unlisted lab - antibiotic resistance genes 2023 024 LILY [facility], [address], [place], [address], 4 16:59:40 unlisted lab - haemophilu s influenzae (respirato ry) 2023 024 LILY [facility], [address], [place], [address], 4 16:59:42 rapid SARS CoV 2 Ag, QL IA, respirator y specimen 2022 023 [email or web address] [facility], [address], [place], [address], 3 23:27:50 Referral otolaryngo logist referral 2023 024 [email or web address] Not available 4 16:59:35 Procedures None recorded. Surgeries None recorded. Imaging electrocar diogram, routine ECG, 12 leads min 2022 023 [email or web address] [facility], [address], [place], [address], 4 05:01:52 Medication Orders None recorded. Patient TargetsNo targets recorded. Patient InstructionsNo instructions recorded. 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 [email or web address] [facility] [address], [place], [address], 06/22/2023 15:35:40 Result Notes None recorded. Problems Name Problem SNOMED Code Status Onset Date Resolution Date Notes Provider Name and Address Organization Details Recorded Time Cough 31408111 Active 2022 JOSE Lee [address], [place], [address], [facility] 3 15:35:12 Pain of left ankle joint 9809896953778 9103 Active 2022 JOSE Lee [address], [place], [address], [facility] 3 15:35:26 Chest pain 15447451 Active 2022 JOSE Lee [address], [place], [address], [facility] 3 15:35:37 Streptococc al sore throat 03813890 Active 2023 Jeanette Guzman MD [address], [place], [address], [facility] 4 16:59:16 Chronic sore throat 575138535 Active 2023 Jeanette Guzman MD [address], [place], [address], [facility] 4 16:59:26 Acute pharyngitis 710762584 Active 2023 Jeanette Guzman MD [address], [place], [address], [facility] 4 16:59:30 Problem Notes None recorded. Procedures Surgical History None recorded. Imaging Results Imaging Date Name Status LastModified by Organiz ation Details LastModified Time 06/22/2023 electrocardi ogram, routine ECG, 12 leads min completed [email or web address] [facility] [address], [place], [address], 06/22/2023 15:35:40 Procedure Notes None recorded. Medical Equipment None Reported. Allergies No known drug allergies Medications Name Sig Start Date Stop Date Status Note LastModified by Organization Details LastModified Time amoxicillin 500 mg capsule TAKE 1 CAPSULE BY MOUTH TWICE A DAY FOR 10 DAYS active Not Available Not Available No t Available hydrocodone 5 mg-acetaminop hen 325 mg tablet TAKE 1 TABLET BY MOUTH EVERY 8 HOURS NEEDED FOR PAIN FOR UP TO 3 DAYS active Not Available Not Available No t Available penicillin V potassium 500 mg tablet TAKE 1 TABLET BY MOUTH EVERY 12 HOURS FOR 10 DAYS active Not Available Not Available No t Available topiramate 25 mg tablet TAKE 1 TABLET BY MOUTH ONCE A DAY active Not Available Not Available No t Available tamsulosin 0.4 mg capsule TAKE 1 CAPSULE (0.4 MG TOTAL) BY MOUTH EVERY NIGHT FOR 7 DAYS. active Not Available Not Available No t Available sertraline 25 mg tablet TAKE 3 TABLETS (75 MG TOTAL) BY MOUTH ONCE A DAY. active Not Available Not Available No t Available ibuprofen 600 mg tablet TAKE 1 TABLET (600 MG TOTAL) BY MOUTH EVERY 6 HOURS NEEDED FOR PAIN FOR UP TO 5 DAYS active Not Available Not Available No t Available sertraline 50 mg tablet TAKE 1 TABLET BY MOUTH EVERY DAY active Not Available Not Available No t Available amoxicillin 875 mg-potassium clavulanate 125 mg tablet TAKE 1 TABLET BY MOUTH TWICE A DAY FOR 5 DAYS active Not Available Not Available No t Available Vitals Date Recorded Body weight Body mass index (BMI) Body height Oxygen saturation Oxygen saturation in Arterial blood by Pulse oximetry Provider Name and Address Organization Details Last Updated DateTime 06/22/2023 93369.6 3 g 29.1 kg/m2 167.64 cm 98 % 98 % Celina Otoole [facility] 14:51:33 Date Recorded Heart rate Body temperature Respiratory rate Systolic blood pressure Diastolic blood pressure Provider Name and Address Organization Details Last Updated DateTime 3 99 /min 98.6 [degF] 17 /min 135 mm[Hg] 87 mm[Hg] JOSE Lee [address], [place], [address], [facility] 3 23:13:13 Social History None recorded. Functional Status None recorded. Mental Status None recorded. Family History Nothing Reported. Medical History No medical history recorded. Gynecological HistoryNo gynecological history recorded. Obstetrics History GPAL:G 0 P 0 0 0 0 Past Encounters Encounter ID Performer Location Encounter Start Date Encounter Closed Date Diagnosis/Indication Diagnosis SNOMED-CT Code Diagnosis ICD10 Code Diagnosis Note [id number] Jeanette Guzman MD [facility] [address] [place] [address] 06/22/2023 14:34:08 06/23/2023 17:51:51 Chest pain 19357534 R07.9 Cough 57521316 R05.9 Pain of le ft ankle joint 0148646870 0736362 M25.572 RICE and recommend X-ray of affected area. [id number] Jeanette Guzman MD [facility] [address] [place] [address] 04/29/2024 16:30:34 04/30/2024 16:29:38 Chronic sore throat 664949698 J31.2 Acute pharyngitis 081074 003 J02.9 J02.8 Health Concerns Section Related Observation LastModified by Organization Detai ls LastModified Time None Recorded Concern Status LastModified by Organization Details LastModified Time None Recorded Advance Directives Directive None Recorded Payers Encounter Date Sequence Insurance Name Policy Number Policy Smith Covered Member ID Smith Member ID Guarantor Name 06/22/2023 1 [facility] - DIRECT CONNECTORCARE TYPE I (HMO) [id number] Alis Samira [id number] 1 Alis Samira 04/29/2024 1 [facility] - DIRECT CONNECTORCARE TYPE I (HMO) [id number] Alis Hansener [id number] 1 Alis Samira Notes Date Note Type Note Provider Name and Address Organization Details Recorded Time 06/22/2023 text/html Patient presente d today with chief complaint of nausea, sore throat, cough, nasal congestion, Tmax of 99 degree F temperature and headaches that started 3 days ago with new onset intermittent confusion/loss of memory/fogginess/we akness and intermittent chest pain/heart palpitations that started 2 days ago with resolution of nausea. Patient states chest pain is seperate and is not linked to cough. Patient states chest pain is at rest and has been progressively worse today. Patient rates severity of chest pain a 5-6/10 currently. Patient denies exertional chest pain when going upstairs. Patient tested negative via at home rapid Covid antigen test performed 2 days ago and yesterday. Patient has been on sertraline for 4-5 years for anxiety/depression. Patient is fully vaccinated with booster against Covid19 and is not up to date on flu vaccination (last flu immunization was in 2021). Patient has a history of concussions x 2 years ago with evaluation without loss of consciousness noted and CT was negative. Denies recent concussion, Covid/Flu/Strep exposure, chills, chest congestion, ear pain, vomiting, abdominal pain, diarrhea, constipation, loss of taste or smell, shortness of breath, lip swelling. Patient also presented today with chief complaint of left ankle pain that started 2 days ago when walking and accidentally inverting left ankle. Patient has tried resting, Tylenol and elevating ankle with mild benefit to symptoms. Patient has a history of right and left ankle sprains in the past with treatment of RICE (no crutches or boot per patient and no fracture history mentioned). Denies head trauma, limping, fall to ground, decreased ROM, numbness/tingling distally, decreased sensation distally, previous surgeries to affected area, fever, chills, shortness of breath, chest pain. Jeanette Guzman MD [address], [place], [address], [facility] 06/26/2023 15:06:45 04/29/2024 text/html Sore Throat UCReported bypatient.Quality:n o difficulty swallowing; no laryngitis;painful Context:no recent travel; no one else with similar symptoms Associated Symptoms:no fever; no cough; no swollen glands; no tonsillar exudates; no throat hoarseness; no dysphagia; no nausea; no vomiting; no abdominal pain; no appetite loss; no headache; no itching throat; no choking; no globus sensation; no lethargy; no rash; no mouth sores; no sinus pain; no nasal congestion/discharg e; no shortness of breath; no drooling; no dyspnea; no tonsillar enlargement Jeanette Guzman MD [address], [place], [address], [facility] 04/29/2024 18:39:38 OBGyn Episode No OBEpisode recorded.
--- OUTSIDE RECORDS SUMMARY | 2025-01-13 08:59 | XMS_ITS | Encounter Summary ---
Author Organization [facility] Address [address] [place] [address] Care Team Providers Care Psych Tech Name Role Phone Cristina Dickinson MD Primary Care Provider [phone] Reason for Referral * Diagnostic Imaging (Routine) - Closed Specialty Diagnoses / Procedures Referred By Contac t Referred To Contact Diagnoses Hydronephrosis, unspecified hydronephrosis type Procedures US Kidney and Bladder Rafa Mares MD Phone: tel: fax: Referral ID Status Reason Start Date Expiration Date Visits Re quested Visits Authorized [id number] Closed 10/15/2022 04/15/2024 1 1 Encounter Details Date Type Department Care Team (Latest Contact Info) Description 10/15/2022 Community Orders [facility] EpicCare Link [address] [place] [address] Rafa Mares MD [address] [place] [address] [address] [place] [address] Hydronephrosis, unspecified hydronephrosis type (Primary Dx) Social History Tobacco Use Types Packs/Day Years Used Date Smoking Tobacco: Never Smokeless Tobacco: Never Alcohol Use Standard Drinks/Week Comments Yes 1 (1 standard drink = 0.6 oz pur e alcohol) once per month Hunger Vital Sign Answer Date Recorded Within the past 12 months, y ou worried that your food would run out before you got the money to buy more. Sometimes true 07 / Within the past 12 months, t he food you bought just didn't last and you didn't have money to get more. Sometimes true Transportation Answer Date Recorded Please elaine the areas for wh ich the patient would like information or assistance: None Apply 09/09/2022 In the past 12 months, has l ack of transportation kept you from medical appointments or from getting medications? 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 * US Kidney and Bladder (10/22/2022 3:31 PM EST) Anatomical Region Laterality Modality Body N/A Ultrasound 10/22/2022 4:12 PM EST Impressions 10/22/2022 4:15 PM EST Normal sonographic appearance of the kidneys and bladder. If this radiology report contains a blank impression section, it is an incomplete radiology report. ??Please contact the interpreting radiologist or applicable radiology division as soon as possible to obtain the completed interpretation. ? Workstation ID: [id number] Narrative 10/22/2022 4:15 PM EST EXAMINATION: Ultrasound kidneys and bladder. INDICATION: History of hydronephrosis TECHNIQUE: Ultrasound evaluation of the kidneys and bladder. Multiple grayscale and color Doppler images were obtained. COMPARISON: 10/09/2022. FINDINGS: RIGHT KIDNEY: ??The right kidney measures 10.7 cm. The parenchyma is within normal limits. There is no shadowing stone or hydronephrosis. LEFT KIDNEY: ??The left kidney measures 11.8 cm. The parenchyma is within normal limits. There is no residual hydronephrosis and no shadowing stone. No perinephric fluid collection. BLADDER: The bladder is unremarkable in sonographic appearance. Prevoid, bladder volume is 67 mL. No demonstrable post void residual in the bladder. ??Bilateral ureteral jets demonstrated. ??No shadowing stone in the bladder. Resulting Agency Comment [id number] Procedure Note Micheal Hahn MD - 10/22/2022 EXAMINATION: Ultrasound kidneys and bladder. INDICATION: History of hydronephrosis TECHNIQUE: Ultrasound evaluation of the kidneys and bladder. Multiplegrayscale and color Doppler images were obtained. COMPARISON: 10/09/2022. FINDINGS: RIGHT KIDNEY: The right kidney measures 10.7 cm. The parenchyma is withinnormal limits. There is no shadowing stone or hydronephrosis. LEFT KIDNEY: The left kidney measures 11.8 cm. The parenchyma is withinnormal limits. There is no residual hydronephrosis and no shadowing stone.No perinephric fluid collection. BLADDER: The bladder is unremarkable in sonographic appearance. Prevoid,bladder volume is 67 mL. No demonstrable post void residual in thebladder. Bilateral ureteral jets demonstrated. No shadowing stone in thebladder. IMPRESSION: Normal sonographic appearance of the kidneys and bladder. If this radiology report contains a blank impression section, it is anincomplete radiology report. Please contact the interpreting radiologistor applicable radiology division as soon as possible to obtain thecompleted interpretation. Workstation ID: [id number] Rafa Mares MD IMG US PROCEDURES Joselyn l Result documented in this encounter Visit Diagnoses Diagnosis Hydronephrosis, unspecified hydronephrosis type- Primary Hydronephrosis, unspecified hydronephrosis type documented in this encounter Care Teams Psych Tech Relationship Specialty Start Date End Date Cristina Dickinson MD [address] [place] [id number] PCP - General 03/10/24 documented as of this encounter
--- OUTSIDE RECORDS SUMMARY | 2025-01-13 08:59 | XMS_ITS | Encounter Summary ---
Author Organization [facility] Address [address] [place] [address] Care Team Providers Care Hair Cutter Name Role Phone Cristina Dickinson MD Primary Care Provider [phone] Encounter Details Date Type Department Care Team (Late st Contact Info) Description 11/12/2024 Results Follow-Up [facility] [address] [place] [phone] Machine Assembler For Puller Over: Skip Graves MD [address] [place] [address] [phone] Social History Tobacco Use Types Packs/Day Years Used Date Smoking Tobacco: Never Smokeless Tobacco: Never Alcohol Use Standard Drinks/Week Comments Yes 1 (1 standard drink = 0.6 oz pur e alcohol) once per month [facility] Utilities Answer Date Recorded In the past 12 months has e [employer], gas, oil, or water [employer] threatened to shut off services in your [...] 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
--- OUTSIDE RECORDS SUMMARY | 2025-01-13 08:59 | XMS_ITS | Clinical Summary ---
Author Organization [facility] Address [address] [place] [address] Care Team Providers Care Boat Hop Name Role Phone Cristina Dickinson MD Primary Care Provider [phone] Allergies No known active allergies Medications * [...] a day as needed (headache). 30 tablet 11/12/2024 Active SUMAtriptan (IMITREX) 50 mg tabletIndication [...] from the original. Please schedule with Dr. Dickinsno or Dr. Roberts, Dr. Aleman, Dr. Ibarra, Dr. Zhang, Dr. Esqueda, or Anca Hinton AIR INTELLIGENCE OFFICER Problem Noted Date Diagnosed Date Hematuria 11/12/2024 [...] numerous to count and 4+ bacteria today. AIR INTELLIGENCE OFFICER Anum Mauricio had started patient on macrobid [...] today: CMP, HIV, and Hepatitis C. Her almond blancher had ordered an A1c and lipid panel [...] it was built up reflux. No fever. [place] sore throat (back of throat area) most [...] 2024 that was unsuccessful. Referred patient to [facility], but they haven't had time to establish care. Discussed with patient about going to an external EXTR[facility]ION LINE OPERATOR at [employer] where they work. - Referral placed - [...] condition Viral upper respiratory tract infection 06/26/20 23 Assessment & Plan (06/26/2023 8:34 PM EDT): Has URI symptoms. Negative Covid and Flu at [facility]. Symptoms have improved somewhat. Requesting note for [...] all PHQ-9 Total Score: (!) 11 (09/09/22 1641) If you checked off any problems on [...] Does not want medications today. Establishing with [facility] at [facility]. Anxiety 04/17/2020 Overview (04/19/2020): NICOLE-7 Assessment: [...] Does not want medications today. Establishing with [facility] at [facility]. Resolved Problems Problem Noted Date Diagnosed [...] establish care with a dentist; suggested trying [facility]. - Follow up for next annual or [...] Patient verbalized understanding. Will start Loestrin OCP. Encounters Date Type Department Care Team Description 01/12/2025 myChart Message [address] [id number] Regulatory Analyst: Cristina Ernst MD Hi/question 12/31/[address] [id number] Regulatory Analyst: Cristina Ernst MD 11/19/2024 [facility] [address] Regulatory Analyst: Cristina Ernst MD Hi/Question 11/12/2024 10:15 AM EST [facility] [id number] Regulatory Analyst: Skip Graves MD Bilateral hearing loss due to cerumen impaction (Primary Dx); Migraine with aura and without status migrainosus, not intractable; Hematuria, unspecified type 11/12/2024 Results Follow-Up [address] [id number] Regulatory Analyst: Skip Graves MD 10/23/2024 [facility]Chart [facility] [address] Regulatory Analyst: Cristina Ernst MD Hi/update 10/22/2024 myChart [facility] [address] Regulatory Analyst: Ace Baptiste Provider Referral to Endocrinology 10/21/2024 Orders Only [address] [address] Regulatory Analyst: Cristina Ernst MD Hyperparathyroidism (Primary Dx) 10/21/2024 Orders Only [facility] [address] [place] [address] Cristina Dickinson MD Hyperparathyroidism (Primary Dx) 10/21/2024 Refill [facility] [address] [place] [phone] Regulatory Analyst: Cristina Ernst MD 10/20/2024 Refill [facility] [address] [place] [phone] Regulatory Analyst: Anum Crane NP 10/19/2024 Telephone [facility] [address] [place] [address] Cristina Dickinson MD from Last 3 Months Immunizations Immunization Administration Dates Next Due COVID-19, Moderna, mRNA, LNP -S, Bivalent Booster, PF 08/25/2022 Covid-19, Pfizer, mRNA, [place] valent, PF 30 mcg/0.3 mL dose (for ages 12 and older) 09/14/2021,11/14/2020,10/24/2020 Covid-19, Pfizer, mRNA, Jevon -sucrose Vaccine, PF, 30 mcg/0.3 mL (for age 12 y and up) 06/02/2024 [id number] 11/13/1992, 2,1991,10/11 Diphtheria, Tetanus Toxoids and Pertussis [...] Live, Oral 05/09/1997,02/07/1993,1991,10/11 Varicella Virus Vaccine 08/03/2008,12/06/1999 Family History Medical History Relation Name Comments Autism Brother Depression Brother No Known Problems Father Myocardial Infarction Maternal Grandfather Diabetes Maternal Grandmother Bipolar disorder Mother Depression Mother Alzheimer's disease Paternal Grandfather Dementia Paternal Grandfather Melanoma Paternal Grandfather Colon cancer Paternal Grandmother Relation Name Status Comments Brother Alive Father Alive Maternal Grandfather Maternal Grandmother Mother Alive Paternal Grandfather Paternal Grandmother Social History Tobacco Use Types Packs/Day Years Used Date Smoking Tobacco: Never Smokeless Tobacco: Never Tobacco Cessation:Counseling Given: Not Answered Alcohol Use Standard Drinks/Week Comments Yes 1 (1 standard drink = 0.6 oz pur e alcohol) once per month [facility] Utilities Answer Date Recorded In the past 12 months has e [employer], gas, oil, or water [employer] threatened to shut off services in your [...] 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 Not on file Not [...] 10/06/2024 2:46 PM EST Plan of Treatment Health Maintenance Due Date Last Done Comments Oral Health Screening 09/29/2024 05/01/2023 Social Drivers of Health Annual Screening 10/05/2025 10/05/2024 Depression Screening and Follow-Up 10/14/2025 10/14/2024, 10/14/2024 Pap Smear 05/01/2026 05/01/2023, 05/01/2020 Cervical Cancer Screening 05/01/2028 HPV and Pap Smear 05/01/2028 05/01/2023 DTaP,Tdap,and Td Vaccines (8 - Td or Tdap) 05/01/2030 05/01/2020, 07/24/2007, 02/03/2003, Additional history exists Colonoscopy 2036 Postponed from 1991 (Other Medical Reason) RSV Vaccine (60+ years old and patients) (1 - 1-dose 75+ series) 2066 Hepatitis B Vaccines Completed 05/09/1997, 1996, 01/19/1996, Additional history exists Varicella Vaccines Completed 08/03/2008, 12/06/1999 COVID-19 Vaccine Completed 06/02/2024, , 09/14/2021, Additional history exists Influenza Vaccine Completed 06/02/2024, , 08/25/2022, Additional history exists HIV Screening Completed 07/15/2024 Hepatitis C Screening Completed 07/15/2024 Alcohol/Substance Use Screening Completed 10/05/2024 Pneumococcal Vaccine: Pediatric (0-5 Years) and At-Risk Patients (6-50 Years) Aged Out No longer eligible based on patient's age to complete this topic Procedures * Due to [place] [employer] law, this organization might not be sharing [...] to Health Maintenance Results * Due to [place] [employer] law, this organization might not be sharing [...] Yellow, Dark Yellow 11/12/2024 10:38 AM EST [facility] Clarity, POCT Clear Clear 11/12/2024 10:38 AM EST [facility] Glucose, POCT Negative Negative mg/dL 11/12/2024 10:38 AM [facility] Bilirubin, POCT Negative Negative 11/12/2024 10:38 AM EST [facility] Ketones, POCT Negative Negative mg/dL 11/12/2024 10:38 AM EST [facility] Specific [place], POCT 1.010 1.005 - 1.030 11/12/2024 10:38 AM EST [facility] Blood, POCT Trace-intac t(A) Negative 11/12/2024 10:38 AM EST [facility] pH, POCT 6.0 5.0 - 8.0 11/12/2024 10:38 AM [facility] Protein, POCT Negative Negative mg/dL 11/12/2024 10:38 AM [facility] Urobilinogen, POCT 0.2 0.2, 1.0 EU/dL 11/12/2024 10:38 AM [facility] Nitrite, POCT Negative Negative 11/12/2024 10:38 AM EST [facility] Leukocyte Esterase, POCT Small(A) Negative 11/12/2024 10:38 AM EST [facility] Urine 11/12/2024 10:3 4 AM EST 11/12/2024 10:38 AM EST us Skip Owens MD LAB POCT ORDERABLES - DEVICE Final Result Performing Organization Address [facility] Co de Phone Number [facility] [address] [place] [address], [place] * Hepatitis C Antibody w/Reflex to HCV RNA, Quantitative PCR (07/15/2024 4:04 PM EDT) Hepatitis C Antibody Interpretation Nonreactive Nonreactive 07/15/2024 8:04 PM EDT [facility] Blood Structure of peripheral vein / Unknown Venipuncture / Unknown 07/15/2024 4:04 PM EDT 07/15/2024 4:04 PM EDT us Eloise Esqueda MD LAB BLOOD ORDERABLES Final Result Performing Organization Address [facility] Co de Phone Number [facility] [address] [place] [address], [place] * [facility] Pap w/HPV, mRNA, Reflex HPV 16/18/[address]/NG (05/01/2023 4:25 PM EDT) PAP with HPV, Reflex HPV 16/18/[address]/NG See Below [employer] Comment: TIS,mRNA/rfx, CTNG ?? CLINICAL INFORMATION: ? [...] evaluated with computer ? assisted technology. ?? DRUG COUNSELOR: ? DCR, CT(ASCP) ? CT screening location: [facility] ? [facility] ? [place], [place] ??[address] ?? HPV mRNA E6/E7 ? Not Detected ? REFERENCE RANGE: Not Detected ? Methodology: Scientific Investigator-Mediated Amplification ? This assay detects E6/E7 viral [...] For additional information, please refer to ? http://education.Dunwello/faq/HWY072d3 ? (This link if provided for information/ [...] SurePath(TM) specimens have been ? determined by [facility]. The modifications have ? not been cleared or approved by the FDA. This assay has ? been validated pursuant to the CLIA regulations and is ? used for clinical purposes. ? For additional information, please refer to ? https://Kismet.Dunwello/faq/WZZ946 ? (This link is being provided for information/ ? educational purposes only.) ? Brushing Cervix uteri structure / Unknown 05/01/2023 4:25 PM EDT Angel Solares DO LAB [facility] O RDERABLES Final Result [facility] [address] [facility] [address], [place] [address], [employer] [address] [place] [address] from Last 3 Months or Most Recently Relevant to Health Maintenance Insurance [employer] Advance Directives Documents on File Type Date Recorded Patient Barrel Handler Expl anation Health Care Proxy 06/26/2023 11:56 AM Health Care Proxy 01/27/2023 4:07 PM 2022 Care Teams Boat Hop Relationship Specialty Start Date End Date Cristina Dickinson MD [address] [place] [address] [place] [address] PCP - General 03/10/24
--- OUTSIDE RECORDS SUMMARY | 2025-01-13 08:59 | XMS_ITS | Encounter Summary ---
Author Organization [facility] Address [address] [place] [address] Care Team Providers Care Metal Cutter Name Role Phone Cristina Dickinson MD Primary Care Provider [phone] Encounter Details Date Type Department Care Team (Late st Contact Info) Description 01/12/2025 myChart Message [facility] [address] [place] [phone] Hoop Bending Machine Operator: Cristina Ernst MD [address] [place] [address] [phone] Hi/question Social History Tobacco Use Types Packs/Day Years Used Date Smoking Tobacco: Never Smokeless Tobacco: Never Alcohol Use Standard Drinks/Week Comments Yes 1 (1 standard drink = 0.6 oz pur e alcohol) once per month [facility] Utilities Answer Date Recorded In the past 12 months has e [employer], gas, oil, or water [employer] threatened to shut off services in your [...] 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
--- OUTSIDE RECORDS SUMMARY | 2025-01-13 08:59 | XMS_ITS | Encounter Summary ---
Author Organization [facility] Address [address] [place] [phone] Phone Care Team Providers Care Equipment Specialist Name Role Phone Adamaris Wolf DO Primary Care Provider Encounter Details Date Type Department Care Team (Late st Contact Info) Description 07/16/2011 Documentation EM Family Medicine [address] [place] [address] Family Medicine, Physician [address] [place], [place] [phone] Social History Tobacco Use Types Packs/Day Years [...] on filedocumented in this encounter Care Teams Equipment Specialist Relationship Specialty Start Date End Date Adamaris Wolf DO [address] [place] [address] PCP - General 05/09/17 01/14/23 documented as of this encounter
[2025-01-13 09:01] LABS: Amphetamine Screen Urine Not Detected (Not Detect); Barbiturates, Urine Not Detected (Not Detect); Benzodiazepines Screen Urine Not Detected (Not Detect); Buprenorphine Scr Not Detected (Not Detect); Cannabinoid Screen Urine Not Detected (Not Detect); Cocaine Screen Urine Not Detected (Not Detect); Fentanyl, urine Not Detected (Not Detect); Methadone Screen, Urine Not Detected (Not Detect); Opiate Screen Urine Not Detected (Not Detect); Oxycodone Screen Urine Not Detected (Not Detect); Phencyclidine Screen Urine Not Detected (Not Detect)
[2025-01-13 09:05] LABS: Hematocrit 40.3 % (37.0-47.0); Hemoglobin 13.5 g/dl (12.0-16.0); Mean Corpuscular HGB Conc 33.5 g/dl (31.0-35.0); Mean Corpuscular Hemoglobin 29.2 pg (27.0-33.0); Mean Platelet Volume 10.8 fL (9.4-12.3); Platelet Count 237 X10*3/uL (160-400); Red Blood Count 4.63 X10*6/uL (4.20-5.50); Red Cell Distribution Width 12.6 % (11.0-16.0); White Blood Count 4.6 X10*3/uL (4.8-10.8)
[2025-01-13 09:15] LABS: Anion Gap 10 (12-20); Blood Urea Nitrogen 13 mg/dL (9-16); Carbon Dioxide 23 mmol/L (22-29); Chloride 110 mmol/L (96-108); Creatinine Clr Calc Pharmacy 131.6; Estimated Glomerular Filt Rate > 60; Glucose Random 124 mg/dL (60-115); Potassium 3.8 mmol/L (3.3-5.1); Sodium 139 mmol/L (135-145)
--- NOTE | 2025-01-13 10:43 | PC.NURSE ---
CARE team evaluation in process
[2025-01-13 11:02] VITALS: BP 133/99; PULSE 83; RESP 16; TEMP 36.6; O2SAT 97
[2025-01-13 11:06] VITALS: BP 133/99; PULSE 83; RESP 16; TEMP 36.6; O2SAT 97
--- NOTE | 2025-01-13 11:32 | MHC.CARE ---
Patient assessed by CARE team, will be referred to [facility]. Patient identies as agender and uses they/ them pronouns.
--- NOTE | 2025-01-13 14:42 | MHC.CARE ---
PHP referral completed
== END 2025-01-13 11:07 | disposition home or self-care (01) ==
PROVIDERS: Emergency Provider Emergency Medicine
DX: F32.A Depression, unspecified (principal); R45.851 Suicidal ideations; E28.2 Polycystic ovarian syndrome; Z79.899 Other long term (current) drug therapy
CPT/HCPCS: 36415; 80048; 80307; 81001; 81025; 85027; 87086; 99285; S9485

== ENCOUNTER 2025-02-01 08:00 | Outpatient (RCR) | payer OTHER, SELFPAY ==
[2025-01-19 11:55] VITALS: BP 125/93; PULSE 76; RESP 16; TEMP 36.9; O2SAT 99
[2025-01-19 12:30] VITALS: BMI 31.5
--- NOTE | 2025-01-19 13:54 | PC.ADMIT ---
Alis is alert and oriented x4, they prefers THEY/THEM pronouns. they appear younger than stated age. They are neatly dressed and appears clean but their hair appears unwashed with white flakes throughout. Alis had presented to [facility] with moms encouragement as thats how you get into partial . They endorse a long history of depression but it has been worsening for the past 4-6 weeks. They have multiple stressors included a strained relationship with their friend with benefits , a recent job change and move to this area from [place]. They report being bullied and made fun of by their coworkers. The aforementioned has been increasing their feelings of worthlessness and depression. They denies any urges to harm self or others and any visual or perceptual disturbances. I love life, I love food and trying new things. My mind gets dark but I don't want to . Alis lives with their parents currently while waiting for their condo to get fixed up. She describes their relationship as good but complicated to be living back with them at my age and they don't respect my pronouns, its hard . Alis has a pcp (Cristina Dickinson MD) out in [place] that they are still seeing until they find a new one out here. They currently have a left foot avulsion fracture from one week ago. I fell down a couple of stairs while moving . They are also having blood in my urine periodically , I am having a CT scan in January to figure things out . They have PCOS and a history of migraines, which occur about once a month. They dont smoke cigarettes. I use a THC vaporizer once a month or so but the last time was 2 months ago. She reports taking her sertraline as prescribed. Safety plan was reviewed with Alis and a copy was given to them.
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
--- NOTE | 2025-01-28 12:34 | HO.PHP ---
Pt's aftercare apts are as follows: 0:00 AM - 11:00 AM [facility] Adult Comprehensive Assessment-- INPERSON Prog: Outpatient Site: [address] [place] [address] Staff: Vijaya Spear :00 AM - 12:00 PM Psychiatric E/M New - Face to Face v2 IN PERSON Prog: Psychiatric Services Site:[address] [place] [address] Staff: CLAUDIA ROA
--- NOTE | 2025-01-28 12:41 | HO.PHPPROGNO ---
Subjective Subjective Date of Service: 01/27/25 Reason For Visit: depression,ADHD Interim History: Patient seen for follow-up. Patient reports reviewing notes on patient portal and gently points out being mis-gendered in this verse writer's admission note. They were thanked for their patients in understanding, and was told that I would addend no with correct pronouns. ?On upside I do have a job interview tomorrow... Things are swinging upwards . She also notes that ?yesterday was waxing and waning, but today is very good . Overall anxiety is also ?pretty good? denies any hopelessness or SI. They have been feeling more optimistic about the prospect of not having to return to work in that toxic environment. Medication Compliance: Yes Side effects from medications: No Attending Groups: Yes Review of Systems Acute medical concerns: No Mental Status Exam Mental Status Exam Narrative: Alert, oriented, in no acute distress. Calm, cooperative, engaged. Ambulating foot ankle brace boot due to injury. No psychomotor agitation or neurovegetative retardation. Eye contact maintained. Mood depressed, affect variable. Speech normal. Thought process linear, coherent. Thought content related to stressors, denies hopelessness, denies SI or HI. No paranoia or delusional content elicited. No evidence of psychosis. Insight and judgment - fair but adequate. Diagnostics Vital Signs (24Hr): BMI result Body Mass Index 31.5 Assessment & Plan Assessment & Plan (1) Anxiety disorder: Status: Acute Code(s): F41.9 - Anxiety disorder, unspecified (2) Depressive disorder: Status: Acute Code(s): F32.A - Depression, unspecified (3) PDD (pervasive developmental disorder): Status: Acute Code(s): F84.9 - Pervasive developmental disorder, unspecified Assessment and Plan: reports being dx with ADHD and Autism 3 yrs ago Plan continue PHP no change to medication regime as of yet, they still have not picked up clonazepam from pharmacy willconsider starting clonazepam 0.5 mg qd PRN anxiety if anxiety returns continue other regular medications? Routine lab work ordered as indicated EKG, routine for baseline QTc for medication considerations as indicated UDS as indicated VS reviewed: afebrile, BP 125/93;?76 bpm Continue to monitor Patient educated on: diagnosis and medication risk/benefits Informed Consent: understands Reason for contiued partial hosp. stay Substantial Risk for: inability to function and med/psych decompensation Certification I certify that partial hospital treatment is medically necessary due to the symptoms and problems resulting from the patient's mental illness and the failure to treat the patient at the partial hospital level of care would likely result in the patient requiring inpatient psychiatric care which could not be prevented at a less intensive level of care. Total time managing care of this patient today _30___ minutes. Discharge Plan Discharge Attending provider: Dixie Zuleta Additional Instructions: :00 AM - 11:00 AM [facility] Adult Comprehensive Assessment-- INPERSON Prog: Outpatient Site: [address] [place] [address] Staff: Vijaya Spear :00 AM - 12:00 PM Psychiatric E/M New - Face to Face v2 IN PERSON Prog: Psychiatric Services Site:[address] [place] [address] Staff: CLAUDIA ROA Medications: New clonazepam 0.5 mg tablet 0.25 - 0.5 mg PO DAILY PRN (Reason: anxiety) Qty: 10 0RF Continued sertraline 100 mg tablet 100 mg PO DAILY sumatriptan succinate 50 mg Tablet 50 mg PO USEASDIRECTD PRN (Reason: Migraine Headache) Rx Instructions: do not exceed 4 doses per 24 hrs meloxicam 7.5 mg Tablet 7.5 mg PO BID PRN (Reason: Migraine Headache) Rx Instructions: patient states she hasnt started taking this medication propranolol 20 mg Tablet 20 mg PO BID Patient Comments: patient states she hasnt started taking this medication Stand Alone Forms: Patient Portal Discharge page Print Language: [place]
--- NOTE | 2025-02-01 22:42 | P.PNPSP_ITS ---
Subjective Subjective Date of Service: 02/01/25 Reason For Visit: depression,ADHD Interim History: Patient seen for follow-up, anticipating discharge at the end of program today.? Had job interview Friday which they did not have high hopes for, also noted that people at this place weren't really friendly. They have another interview next week which they seem to take more interest in. Reports no acute issues or concerns. Medication compliant, medications well- tolerated. Denies any adverse effects.? Mood is stable.? Denies any hopelessness or SI. Denies thoughts of harming self or others at this time. Denies any aggressive ideation or HI. Denies any paranoia or AH or VH. Sleep, appetite, energy stable. Medication Compliance: Yes Side effects from medications: No Attending Groups: Yes Review of Systems Acute medical concerns: No Mental Status Exam Mental Status Exam Narrative: Alert, oriented, in no acute distress. Calm, cooperative. Mood stable, affect appropriate. Speech normal. Thought process linear, coherent, more goal- directed. Thought content related to stressors, future-oriented, denies any helplessness, hopelessness or SI.? No aggressive ideation or HI. No paranoia or delusional content elicited. No evidence of psychosis. Insight and judgment fair-good. Diagnostics Vital Signs (24Hr): BMI result Body Mass Index 31.5 Assessment & Plan Assessment & Plan (1) Anxiety disorder: Status: Acute Code(s): F41.9 - Anxiety disorder, unspecified (2) Depressive disorder: Status: Acute Code(s): F32.A - Depression, unspecified (3) PDD (pervasive developmental disorder): Status: Acute Code(s): F84.9 - Pervasive developmental disorder, unspecified Assessment and Plan: reports being dx with ADHD and Autism 3 yrs ago Plan Discharge from [facility] Continue regular medications Refills sent to pharmacy Will defer further medication management to outpatient provider *Safety plan reviewed *Discharge diagnoses, treatment course, discharge plan have been reviewed with patient (including medication regime, medication management, potential side effects) as well as treatment rationale were also revisited *Discharge paperwork signed and given to patient, copy sent for scanning to chart Patient educated on: diagnosis and medication risk/benefits Informed Consent: understands Reason for contiued partial hosp. stay Substantial Risk for: stable for discharge Certification I certify that partial hospital treatment is medically necessary due to the symptoms and problems resulting from the patient's mental illness and the failure to treat the patient at the partial hospital level of care would likely result in the patient requiring inpatient psychiatric care which could not be prevented at a less intensive level of care. Total time managing care of this patient today __30__ minutes. Discharge Plan Discharge Attending provider: Dixie Zuleta Additional Instructions: :00 AM - 11:00 AM [facility] Adult Comprehensive Assessment-- INPERSON Prog: Outpatient Site: [address] [place] [address] Staff: Vijaya Spear :00 AM - 12:00 PM Psychiatric E/M New - Face to Face v2 IN PERSON Prog: Psychiatric Services Site:[address] [place] [address] Staff: CLAUDIA ROA Medications: New clonazepam 0.5 mg tablet 0.25 - 0.5 mg PO DAILY PRN (Reason: anxiety) Qty: 10 0RF Continued sertraline 100 mg tablet 100 mg PO DAILY sumatriptan succinate 50 mg Tablet 50 mg PO USEASDIRECTD PRN (Reason: Migraine Headache) Rx Instructions: do not exceed 4 doses per 24 hrs meloxicam 7.5 mg Tablet 7.5 mg PO BID PRN (Reason: Migraine Headache) Rx Instructions: patient states she hasnt started taking this medication propranolol 20 mg Tablet 20 mg PO BID Patient Comments: patient states she hasnt started taking this medication Stand Alone Forms: Patient Portal Discharge page Patient Education: Depression (ED), Depression (DC), Anxiety (ED) Print Language: Slovak
== END 2025-02-01 23:59 | disposition home or self-care (01) ==
LOC: HO.PHPA 08:00
PROVIDERS: Visit Provider Psychiatry & Neurology Psychiatry
DX: F41.9 Anxiety disorder, unspecified (principal); F32.A Depression, unspecified; F84.9 Pervasive developmental disorder, unspecified; Z79.899 Other long term (current) drug therapy
CPT/HCPCS: 90791; 90853

== ENCOUNTER 2025-08-03 18:47 | Emergency (ER) | payer OTHER, SELFPAY ==
--- NOTE | ~2025-08-03 | XR_ITS ---
CLINICAL HISTORY: lac --- Additional Notes or Special Instructions: left thumb 3 view left 1st digit Comparison: None Findings: Bones intact. No dislocations. No significant loss of joint space or osteophytes. No erosions. No radiopaque foreign body. Diffuse soft tissue swelling with laceration along the dorsal aspect of the phalangeal tuft 1st digit. IMPRESSION: No acute fracture. This document has been electronically signed by: Sourav Torres MD on 08/03/2025 20:55:06
[2025-08-03 19:24] VITALS: BP 146/88; PULSE 81; RESP 20; TEMP 36.4; O2SAT 97; BMI 29.8
--- NOTE | 2025-08-03 19:26 | ED.GENADULT ---
HPI - General Adult General Chief complaint: Skin/Abscess/Foreign Body Stated complaint: left thumb lacer Time Seen by Provider: 08/03/25 23:09 Source: patient Mode of arrival: ambulatory Limitations: no limitations History of Present Illness ED Provider: Vicente GARCIA HPI narrative: Patient is a 34-year-old female presenting to the ED reporting she was cutting onions to make dinner when she suffered a laceration to the tip of her left thumb from the knife. The patient does not know the date of her last tetanus shot. Related Data Home Medications ?Medication ?Instructions ?Recorded ?Confirmed sertraline 100 mg tablet 100 mg PO DAILY 01/13/25 01/19/25 meloxicam 7.5 mg tablet 7.5 mg PO BID PRN Migraine Headache 01/19/25 01/19/25 propranolol 20 mg tablet 20 mg PO BID 01/19/25 01/19/25 sumatriptan succinate 50 mg tablet 50 mg PO USEASDIRECTD PRN Migraine 01/19/25 01/19/25 Headache Previous Rx's ?Medication ?Instructions ?Recorded clonazepam 0.5 mg tablet 0.25 - 0.5 mg (0.5 - 1 x 0.5 mg) 01/20/25 PO DAILY PRN anxiety #10 tabs Allergies Allergy/AdvReac Type Severity Reaction Status Date / Time No Known Allergies Allergy Verified 08/03/25 19:25 Review of Systems Review of Systems: Yes all other systems are reviewed and are negative [facility]LY [facility] Past Medical History Medical History (Updated 08/04/25 @ 00:38 by Vicente Blunt PA-C) PCOS (polycystic ovarian syndrome) Hematuria (~09/29/24) Ankle fracture (~01/12/25) ADHD Depression Surgical History (Updated 01/19/25 @ 13:01 by Brandi Reyez RN) H/O arthroscopy Family History Family History (Updated 01/19/25 @ 13:02 by Brandi Reyez RN) Mother Depression Social History Social History (Updated 01/19/25 @ 13:08 by Brandi Reyez RN) Household Members: Family and Friend(s) Household Members Other:: parents Housing: House Are you a primary summer child caregiver to a significant other at home: No Do you presently have visiting nurse or other home services: No Patient Tobacco Use Status: Never used Tobacco Substance Use Type: Marijuana Special jeniffer needs: No Advance Directives: No Advance Directives Information Provided: Yes service: No Current occupational status: employed Current occupation: director of front office Current occupational exposures/hazards: No Physical Exam ED Vital Signs: Vital Signs - 24 hr 08/03/25 19:24 08/04/25 00:54 Temperature 97.5 F 97.5 F Pulse Rate 81 81 Respiratory Rate 20 20 Blood Pressure 146/88 H 146/88 H Pulse Oximetry 97 97 Oxygen Delivery Method Room Air Room Air BMI result Body Mass Index 29.8 CONSTITUTIONAL: The patient appears non-toxic, well nourished and in no acute distress. Vital signs as documented. HEAD: Atraumatic, normocephalic. EYES: EOMs grossly intact, pupils equal, conjunctiva clear, no exudate. ENT: Nares patent, no discharge. Airway patent, no audible stridor, visible mucosa is pink and moist without noted lesions. NECK: trachea is midline, no obvious masses or gross abnormalities. CHEST: Symmetric movement, normal appearance. LUNGS: Non-labored work of breathing. CARDIAC: No evidence of hypoperfusion. ABDOMEN: Nondistended, no obvious injury. : Deferred. EXTREMITIES: There is a 0.5 cm laceration noted to the tip of the left thumb with thin skin flap noted, more consistent with nearly complete skin avulsion , no evidence of deep laceration. No active bleeding. Moves all extremities spontaneously without reported pain. No other obvious injury or deformity noted. NEURO: Alert and oriented x3, CN II-XII appear grossly intact. Cerebellar Functioning grossly intact. Speech clear and appropriate. SKIN: Warm, dry, color appropriate. No rashes or lesions noted. Course Course Course Narrative: RME: 34 yold female presents to the ED for left thumb laceration that occurred while cooking. Patient unknown when last tdap shot. laceration to evalauted furhter in the ED. Xray odered Medications Administered Discontinued Medications Generic Name Dose Route Start Last Admin Trade Name Freq PRN Reason Stop Dose Admin Diphtheria/Tetanus/Acell Pertussis 0.5 ml 08/03/25 23:32 08/03/25 23:40 Diphth,Pertus(Acell),Tet Adult 0.5 Ml Syringe IM 08/03/25 23:33 0.5 ml .ONCE ONE Administration Lidocaine HCl 5 ml 08/03/25 23:32 08/03/25 23:41 Lidocaine Hcl 1 % Mpf 5 Ml Vial INFILTRATI 08/03/25 23:33 5 ml ONCE ONE Administration Procedures Laceration Laceration 1: Site: hand Side (If applicable): left (Thumb) Size (cm): 0.5 Description: flap Depth: simple, single layer Local Anesthetic: lidocaine 1% (digital block) Amount of anesthesia used (mL): 5 Pre-repair: wound explored and irrigated extensively Skin layer closed with: nylon Size (cm): 4-0 Number of sutures: 3 Technique: simple, interrupted Medical Decision Making Medical Decision Making [facility] Narrative: 11:34 PM 08/03/2025 (Ángela GARCIA): Patient is a 34-year-old female presenting to the ED reporting she was cutting onions to make dinner when she suffered a laceration to the tip of her left thumb from the knife. The patient does not know the date of her last tetanus shot. The patient's exam reveals a very thin 0.5 cm laceration of the tip of the left thumb with skin flap noted, overlying skin flap appears very thin and likely not viable, more consistent with nearly complete skin avulsion. Patient was sent for a finger x-ray during triage process, no acute fracture or foreign body. We will provide digital block, assess area further, and consider removal of skin flap versus tack down with sutures. Patient's tetanus will be updated. Admission/Observation Consideration of admission/observation: Escalation of care including admission/observation considered Lab Data [facility] Lab Attestation statement: I reviewed the patient's lab results. Radiology Impression Discussion of test interpretation with radiology: I have reviewed the radiologist's reading. Radiologist Impression: 3 view left 1st digit Comparison: None Findings: Bones intact. No dislocations. No significant loss of joint space or osteophytes. No erosions. No radiopaque foreign body. Diffuse soft tissue swelling with laceration along the dorsal aspect of the phalangeal tuft 1st digit. IMPRESSION: No acute fracture. This document has been electronically signed by: Sourav Torres MD on 08/03/2025 20:55:06 External Record Review External record reviewed: Outpatient record and Prior outpatient labs Prescription Management I considered prescription management with: Pain Medication Discharge Plan Discharge Clinical Impression: Laceration of thumb Qualifiers: Encounter type: initial encounter Damage to nail status: without damage Foreign body presence: without foreign body Laterality: left Qualified Code(s): S61.012A - Laceration without foreign body of left thumb without damage to nail, initial encounter Patient Disposition: Home, Self-Care Instructions: Finger Laceration (ED) Additional Instructions: Thank you for choosing [facility] Emergency Department for your care today. Your laceration today has a very thin skin flap, this skin flap was sutured in place, however it may or may not have enough blood supply to adequately heal, if it is unable to heal it should fall off, otherwise he will need to be removed at a later time. The sutures are nonabsorbable and will need to be removed in 5-7 days. Please return to the emergency department or follow-up with your primary care provider for removal of sutures. Please apply bacitracin and a clean dry dressing to the laceration twice daily for the first 2-3 days. Then please keep the area clean and dry, but uncovered and exposed to the air to allow the laceration to heal. While it is perfectly acceptable to allow water to run over the sutures while showering, please do not swim, or submerge the laceration in standing water until the sutures are removed. You should take alternating (staggered) doses of ibuprofen 600mg and Tylenol 1000mg every 4 hours as needed for any additional pain. If you do not have a primary care physician, please call the [facility] at [phone] to establish a new primary care physician. While waiting to establish your new primary care physician, you can call our Walk-in [facility] at [phone] for non-emergency needs. Please return to the emergency department if you develop any uncontrollable bleeding, re-opening of your wound, redness advancing >1-2 cm away from your wound, or white milky discharge from your wound. Please also return if you experience any other new or worsening symptoms or concerns. Prescriptions: No Action sertraline 100 mg tablet 100 mg PO DAILY sumatriptan succinate 50 mg Tablet 50 mg PO USEASDIRECTD PRN (Reason: Migraine Headache) Rx Instructions: do not exceed 4 doses per 24 hrs meloxicam 7.5 mg Tablet 7.5 mg PO BID PRN (Reason: Migraine Headache) Rx Instructions: patient states she hasnt started taking this medication propranolol 20 mg Tablet 20 mg PO BID Patient Comments: patient states she hasnt started taking this medication clonazepam 0.5 mg tablet 0.25 - 0.5 mg PO DAILY PRN (Reason: anxiety) Qty: 10 0RF Referrals: Angel Tierney MD [Other] Clinical Impression: Laceration of thumb Interventions: ED Discharge Assessment Last Done: 08/04/25 00:54 Discharge Date/Time: 08/04/25 00:59 Print Language: Kiswahili
[2025-08-03] MEDS: Diphth,Pertus(ACell),Tet Adult 0.5 ML SYRINGE IM (23:40)
[2025-08-03] MEDS: Lidocaine HCl 1 % MPF 5 ML VIAL INFILTRATI (23:41)
--- OUTSIDE RECORDS SUMMARY | 2025-08-03 23:50 | XMS_ITS | Clinical Summary ---
Author Organization [facility] Address [address] [place] [address] Phone Care Team Providers Care Director [facility] Name Role Phone Unavailable Primary Care Provider [...] 80 07/12/2011 12:00 AM EDT Temperature 36.2 C (97.1 F) 07/12/2011 12:00 AM EDT Respiratory Rate - - Oxygen Saturation - [...] 07/24/2017 07/24/2007, 02/03/2003, 05/09/1997, Additional history exists HPV Vaccines (1 - 3-dose SCDM series) 2018 Influenza Vaccines (#1) 2025 07/12/2011, 07/24 COVID-19 Vaccine ( season) 2025 HIB Vaccines Completed 11/13/1992, 01/27, 1991, Additional history exists MMR Vaccines Completed 01/19/1996, 11/13/1992 Hepatitis B Vaccines Completed 05/09/1997, 1996, 01/19/1996 IPV Vaccines Completed 05/09/1997, 01/27, 1991, Additional history exists Meningococcal Vaccine Aged Out 07/24/2007 No ortiz qi eligible based on patient's age to complete this topic Varicella Vaccines Completed 08/03/2008, 12/06/1999 Hepatitis A Vaccines Aged Out No long er eligible based on patient's age to complete this topic Men B Vaccine Aged Out No longer elig ible based on patient's age to complete this topic Pneumococcal Vaccine Aged Out No long er eligible based on patient's age to complete this topic
--- OUTSIDE RECORDS SUMMARY | 2025-08-03 23:50 | XMS_ITS | Encounter Summary ---
Author Organization [facility] Address [address] [place] [phone] Phone Care Team Providers Care Manager Behavior Name Role Phone Adamaris Wolf DO Primary Care Provider Encounter Details Date Type Department Care Team (Late st Contact Info) Description 07/16/2011 Documentation EM Family Medicine [address] [place] [address] Family Medicine, Physician [address] [place], [place] [id number] Social History Tobacco Use Types Packs/Day Years [...] filedocumented in this encounter Care Teams Manager Behavior Relationship Specialty Start Date End Date Adamaris Wolf DO [address] [place] [id number] PCP - General 05/09/17 01/14/23 documented as of this encounter
--- OUTSIDE RECORDS SUMMARY | 2025-08-03 23:50 | XMS_ITS | Encounter Summary ---
Author Organization [facility] Address [address] [place] [phone] Phone Care Team Providers Care Meat Molder Name Role Phone Adamaris Wolf DO Primary Care Provider [phone] Encounter Details Date Type Department Care Team (Late st Contact Info) Description 05/15/2017 Conversion Encounter [facility] [place] [address] [place] [address] Social History Tobacco Use Types Packs/Day Years [...] on filedocumented in this encounter Care Teams Meat Molder Relationship Specialty Start Date End Date Adamaris Wolf DO [address] [place] [address] PCP - General 05/09/17 01/14/23 documented as of this encounter
--- OUTSIDE RECORDS SUMMARY | 2025-08-03 23:50 | XMS_ITS | Encounter Summary ---
Author Organization [facility] Address [address] [place] [address] Care Team Providers Care Toll Mechanic Name Role Phone Physician, Pcp Unknown Primary Care Provider Claudia vailable Encounter Details Date Type Department Care Team (Late st Contact Info) Description 12/17/2024 Lab Requisition [facility] - Main Lab [address] [facility] [place] [address] Abimael Rivers MD [address] [place], [place] [phone] Hematuria, unspecified Social History Tobacco Use Types Packs/Day Years Used Date Smoking Tobacco: Never Assessed Comments No Sex and Gender Information Value Date Recorded Sex Assigned at Female 12/13/2024 5:27 PM EDT Legal Sex Female 1:47 PM EDT Gender Identity Other 01/26/2025 5:02 PM EDT Sexual Orientation Something else 01/26/2025 5: 02 PM EDT documented as of this encounter Plan of Treatment Not on file documented as of this encounter Procedures Procedure Name Priority Date/Time Associated Diagnosis Comments CULTURE URINE Routine 12/17/2024 2:39 PM EDT Hematuria, unspecified documented in this encounter Results * Culture urine (12/17/2024 2:39 PM EDT) Culture, Urine 50,000-99,000 CFU/mL Mixed urogenital samm, no uropathogens present. Suggest repeat specimen if clinically indicated. 12/18/2024 2:54 PM EDT [facility] Urine Urine specimen from urethra / Unknown 12/17/2024 2:39 PM EDT 12/17/2024 6:24 PM EDT us Abimael Rivers MD LAB MICROBIOLOGY - GENER AL ORDERABLES Final Result [facility] [address] [place] [address], documented in this encounter Visit Diagnoses Diagnosis Hematuria, unspecified documented in this encounter Care Teams Toll Mechanic Relationship Specialty Start Date End Date Physician, Pcp Unknown PCP - General 12/13/24 documented as of this encounter
--- OUTSIDE RECORDS SUMMARY | 2025-08-03 23:50 | XMS_ITS | Encounter Summary ---
Author Organization [facility] Address [address] [place] [phone] Phone Care Team Providers Care Hay Stacker Name Role Phone Adamaris Wolf DO Primary Care Provider Encounter Details Date Type Department Care Team (Late st Contact Info) Description 06/28/2013 Documentation EM Family Medicine [address] [place] [address] Family Medicine, Physician [address] [place], [place] [phone] Social History Tobacco Use Types Packs/Day Years [...] on filedocumented in this encounter Care Teams Hay Stacker Relationship Specialty Start Date End Date Adamaris Wolf DO [address] [place] [phone] PCP - General 05/09/17 01/14/23 documented as of this encounter
--- OUTSIDE RECORDS SUMMARY | 2025-08-03 23:50 | XMS_ITS | Clinical Summary ---
Author Organization [facility] Address [address] [place] [address] Phone Care Team Providers Care Cap Machine Operator Name Role Phone Physician, Pcp Unknown Primary Care Provider Claudia vailable Allergies No known active allergies Medications No known medications Medical History Medical History Date Comments Kidney stone Adhd Social History Tobacco Use Types Packs/Day Years Used Date Smoking Tobacco: Never Assessed Comments No Sex and Gender Information Value Date Recorded Sex Assigned at Female 12/13/2024 5:27 PM EDT Legal Sex Female 1:47 PM EDT Gender Identity Other 01/26/2025 5:02 PM EDT Sexual Orientation Something else 01/26/2025 5: 02 PM EDT Obstetrics History Last Filed Vital Signs Vital Sign Reading Time Taken Comments Blood Pressure 132/101 12/13/2024 6:23 PM EDT Pulse 72 12/13/2024 6:23 PM EDT Temperature 36.8 C (98.2 F) 12/13/2024 6:23 PM EDT Respiratory Rate 16 12/13/2024 6:23 PM EDT Oxygen Saturation 97% 12/13/2024 6:23 PM EDT Inhaled Oxygen Concentration - - Weight 86.2 kg (190 lb) 12/13/2024 1:52 PM EDT Height 170.2 cm (5' 7 ) 12/13/2024 1:52 PM EDT Body Mass Index 29.76 12/13/2024 1:52 PM EDT Plan of Treatment Health Maintenance Due Date Last Done Comments Cervical Cancer Screening: Pap Smear 2012 HPV Vaccines (1 - 3-dose SCDM series) 2018 Depression Screening 09/29/2024 HIV Screening 12/13/2024 Social Influencers of Health Screening 12/13/2024 Influenza Vaccine (#1) 2025 , 08/18/2023, 08/25/2022, Additional history exists DTaP,Tdap,and Td Vaccines (9 - Td or Tdap) 05/01/2030 05/01/2020, 07/24/2007, 02/03/2003, Additional history exists RSV Immunization Adult Patients (1 - 1-dose 75+ series) 2066 HIB Vaccines Completed 11/13/1992, 10/30, 02/13/1992, Additional history exists MMR Vaccines Completed 01/19/1996, 10/30, 1991 Hepatitis B Vaccines Completed 05/09/1997, 1996, 01/19/1996, Additional history exists IPV Vaccines Completed 05/09/1997, 01/27, 11/13/1992, Additional history exists Meningococcal ACWY Vaccine Aged Out 07/24/2007 N o longer eligible based on patient's age to complete this topic Varicella Vaccines Completed 08/03/2008, 12/06/1999 COVID-19 Vaccine Completed 06/02/2024, , 09/14/2021, Additional history exists Hepatitis C Screening Completed 07/15/2024 Hepatitis A Vaccines Aged Out No long er eligible based on patient's age to complete this topic Meningococcal B Vaccine Aged Out No l onger eligible based on patient's age to complete this topic Pneumococcal Vaccine: Pediatrics (0 to 5 Years) and At-Risk Patients (6 to 49 Years) Aged Out No longer eligible based on patient's age to complete this topic RSV Immunization Patients Under 20 months Aged Out No longer eligible based on patient's age to complete this [place] [address] MEDICAID - [place] [facility] [address] [place] [address] Care Teams Cap Machine Operator Relationship Specialty Start Date End Date Physician, Pcp Unknown PCP - General 12/13/24
--- OUTSIDE RECORDS SUMMARY | 2025-08-03 23:50 | XMS_ITS | Clinical Summary ---
Author Organization [facility] Address [address] [place] [address] Care Team Providers Care Farm Product Purchaser Name Role Phone Kelsy Ortiz MD Primary Care Provider + Allergies No known active allergies Medications * [...] 24 hours. 10 tablet 11 11/12/2024 Active sertraline (ZOLOFT) 100 mg tablet Take 1 tablet (100 mg total) by mouth once a day. 90 tablet 1 04/27/2025 Active propranoloL (INDERAL) 20 mg tabletIndication s:Migraine with aura and without status migrainosus, not intractable TAKE 1 TABLET BY MOUTH TWICE A DAY 180 tablet 05/25/2025 Active Active Problems Patient Care Coordination No te Formatting of this note migh t be different from the original. Please schedule with Dr. Dickinson or Dr. Roberts, Dr. Aleman, Dr. Ibarra, Dr. Zhang, Dr. Esqueda, or Anca Hinton DIRECTOR CLINICAL OPERATIONS Problem Noted Date Diagnosed Date Ankle injury, initial encounter 01/20/2025 Assessment & Plan (01/20/2025 4:42 PM EDT): Pt reports 1.5 weeks ago while in the process of moving, missed the last step of a flight of stairs and fell. Unsure if they rolled their ankle but had been experiencing pain. Was seen at [facility] urgent [facility] and had an x-ray which showed an avulsion fracture. Was placed in walking boot. Reports pain has somewhat improved since first incident but still uncomfortable. Has been able to bear weight with boot, and tylenol provides moderate relief. On physical assessment patient has tenderness to palpation most prominent at the medial malleolus and along the anterior tibiotalar and tibionavicular ligaments. No bony tenderness to the dorsum and plantar surface of the foot, mild swelling but no appreciable bruising. Since x-rays obtained in urgent care are not available, will order repeat. Advised to alternate tylenol and ibuprofen for pain. Will contact for follow up once imaging results are available. Hematuria 11/12/2024 Assessment & Plan (11/12/2024 3:41 [...] numerous to count and 4+ bacteria today. DIRECTOR CLINICAL OPERATIONS Anumsunitha Mauricio had started patient on macrobid last [...] today: CMP, HIV, and Hepatitis C. Her data entry machine operator had ordered an A1c and lipid panel [...] it was built up reflux. No fever. [place] sore throat (back of throat area) most [...] 2024 that was unsuccessful. Referred patient to CLINICAL NURSE REVIEWER, but they haven't had time to establish care. Discussed with patient about going to an external CLINICAL NURSE REVIEWER at [facility] where they work. - Referral placed - [...] URI symptoms. Negative Covid and Flu at [facility]. Symptoms have improved somewhat. Requesting note [...] want medications today. Establishing with T at [facility]. Anxiety 04/17/2020 Overview (04/19/2020): NICOLE-7 Assessment: Feeling [...] want medications today. Establishing with T at [facility]. Resolved Problems Problem Noted Date Diagnosed Date [...] acute fractures in her knee or ankle. Continue Tylenol for pain Continue to apply ice to knee and ankle Patient will start physical therapy soon. We [...] physical therapy if her pain is controlled. X-rays of left knee and left ankle Continue Tylenol for pain Continue to apply ice to knee and ankle Follow-up in 1 week to review x-ray [...] Encounters Date Type Department Care Team Description 05/21/[address] [id number] Visual Communications Instructor: Cristina Ernst MD Migraine with aura and without status migrainosus, not intractable from Last 3 Months Immunizations Immunization Administration Dates Next Due COVID-19, Moderna, mRNA, LNP -S, Bivalent Booster, PF 08/25/2022 Covid-19, Pfizer, mRNA, [place] valent, PF 30 mcg/0.3 mL dose (for ages 12 and older) 09/14/2021,11/14/2020,10/24/2020 Covid-19, Pfizer, mRNA, Jevon -sucrose Vaccine, PF, 30 mcg/0.3 mL (for age 12 y and up) 06/02/2024 [id number] 11/13/1992, 2,1991,10/11 Diphtheria, Tetanus Toxoids and Pertussis [...] oz pur e alcohol) once per month [facility] Utilities Answer Date Recorded In the past 12 months has e retsCloud, gas, oil, or water [employer] threatened to shut off services in your [...] 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 Not on file Not on file Last Filed Vital Signs Vital Sign Reading Time Taken Comments Blood Pressure 110/76 01/20/2025 3:52 PM EDT Pulse 97 01/20/2025 3:52 PM EDT Temperature 36.9 C (98.4 F) 01/20/2025 3:52 PM EDT Respiratory Rate 20 10/09/2022 8:36 AM EST Oxygen Saturation 97% 11/12/2024 10:23 AM EST Inhaled Oxygen Concentration - - Weight 90.3 kg (199 lb) 11/12/2024 10:23 AM EST Height 167.6 cm (5' 6 ) 10/06/2024 2:46 PM EST Body Mass Index 32.12 10/06/2024 2:46 PM EST Plan of Treatment Health Maintenance Due Date Last Done Comments COVID-19 Vaccine ( season) 2025 06/02/2024, 08/25/2022, 09/14/2021, Additional history exists Influenza Vaccine (#1) 2025 , 08/18/2023, 08/25/2022, Additional history exists Social Drivers of Health Annual Screening 10/05/2025 10/05/2024 Depression Screening and Follow-Up 10/14/2025 10/14/2024 Pap Smear 05/01/2026 05/01/2023, 05/01/2020 Cervical Cancer Screening 05/01/2028 HPV and Pap Smear 05/01/2028 05/01/2023 DTaP,Tdap,and Td Vaccines (8 - Td or Tdap) 05/01/2030 05/01/2020, 07/24/2007, 02/03/2003, Additional history exists Colonoscopy 2036 Postponed from 1991 (Other Medical Reason) Hepatitis B Vaccines Completed 05/09/1997, 1996, 01/19/1996, Additional history exists Varicella Vaccines Completed 08/03/2008, 12/06/1999 Oral Health Screening Discontinued 05/01/2023 HIV Screening Completed 07/15/2024 Hepatitis C Screening Completed 07/15/2024 Alcohol/Substance Use Screening Completed 10/05/2024 Pneumococcal Vaccine: Pediatric (0-5 Years) and At-Risk Patients (6-50 Years) Aged Out No longer eligible based on patient's age to complete this topic Procedures * Due to [place] [facility] law, this organization might not be sharing negative HIV tests. Procedure Name Priority Date/Time Associated Diagnosis Comments HEPATITIS C ANTIBODY W/REFLEX TO HCV RNA, QUANTITATIVE PCR Routine 07/15/2024 4:04 PM EDT Healthcare maintenance [facility] PAP W/HPV, MRNA, REFLEX HPV 16/18/[address]/NG Routine 05/01/2023 4:25 PM EDT Cervical cancer screening from Last 3 Months or Most Recently Relevant to Health Maintenance Results * Due to [place] [facility] law, this organization might not be sharing negative HIV tests. * Hepatitis C Antibody w/Reflex to HCV RNA, Quantitative PCR (07/15/2024 4:04 PM EDT) Hepatitis C Antibody Interpretation Nonreactive Nonreactive 07/15/2024 8:04 PM EDT [facility] Blood Structure of peripheral vein / Unknown Venipuncture / Unknown 07/15/2024 4:04 PM EDT 07/15/2024 4:04 PM EDT us Eloise Esqueda MD LAB BLOOD ORDERABLES Final Result [facility] [address] [place] [address], * [facility] Pap w/HPV, mRNA, Reflex HPV 16/18/[address]/NG (05/01/2023 4:25 PM EDT) PAP with HPV, Reflex HPV 16/18/[address]/NG See Below Correlor Comment: TIS,mRNA/rfx, CTNG CLINICAL INFORMATION: None given LMP: NONE GIVEN PREV. PAP: NONE GIVEN PREV. BX: NONE GIVEN SOURCE: Cervix, Endocervix STATEMENT OF ADEQUACY: Satisfactory for evaluation. Endocervical/transformation zone component present. INTERPRETATION/RESULT: Cytology Results: Negative for intraepithelial lesion or malignancy. COMMENT: This Pap test has been evaluated with computer assisted technology. PLANT OPERATIONS VICE PRESIDENT: JYOTI CLEMENTE(ASCP) CT screening location: [place] [address] HPV mRNA E6/E7 Not Detected REFERENCE RANGE: Not Detected Methodology: Livestock Feeder-Mediated Amplification This assay detects E6/E7 viral messenger RNA (mRNA) from 14 high-risk HPV types (16,18,31,33,35,39,45,51,52,56,58,59,66,68). Cervical sources are required for HPV testing. If a vaginal source from a patient who has had a total hysterectomy with removal of cervix was submitted, please contact the testing laboratory for alternative testing options. For additional information, please refer to [email or web address].[email or web address] (This link if provided for information/ educational purposes only.) CHLAMYDIA TRACHOMATIS RNA, TMA, UROGENITAL NOT DETECTED REFERENCE RANGE: NOT DETECTED NEISSERIA GONORRHOEAE RNA, TMA, UROGENITAL NOT DETECTED REFERENCE RANGE: NOT DETECTED EXPLANATORY NOTE: The Pap is a screening test for cervical cancer. It is not a diagnostic test and is subject to false negative and false positive results. It is most reliable when a satisfactory sample, regularly obtained, is submitted with relevant clinical findings and history, and when the Pap result is evaluated along with historic and current clinical information. The analytical performance characteristics of this assay, when used to test SurePath(TM) specimens have been determined by [facility]. The modifications have not been cleared or approved by the FDA. This assay has been validated pursuant to the CLIA regulations and is used for clinical purposes. For additional information, please refer to https://CamioCam.BlogRadio/faq/RHR803 (This link is being provided for information/ educational purposes only.) Brushing Cervix uteri structure / Unknown 05/01/2023 4:25 PM EDT us Angel Solares DO LAB [facility] AP AMBULATORY O RDERABLES Final Result [facility] [address] [facility] [address], [place] [address], [place] [phone] [employer] [address] [place] [address] from Last 3 Months or Most Recently Relevant to Health Maintenance Advance Directives Documents on File Type Date Recorded Patient Utility Maintenance Worker Expl anation Health Care Proxy 06/26/2023 11:56 AM Health Care Proxy 01/27/2023 4:07 PM 2022 Care Teams Farm Product Purchaser Relationship Specialty Start Date End Date Kelsy Ortiz MD [address] [place] [id number] PCP - General 03/29/25
--- OUTSIDE RECORDS SUMMARY | 2025-08-03 23:50 | XMS_ITS | Encounter Summary ---
Author Organization [facility] Address [address] [place] [address] Phone Care Team Providers Care Wine Steward Name Role Phone Adamaris Wolf DO Primary Care Provider [phone] Encounter Details Date Type Department Care Team (Late st Contact Info) Description 07/16/2011 Documentation EM Family Medicine [address] [place] [address] Family Medicine, Physician [address] [place], [place] [id number] Social History Tobacco Use Types Packs/Day Years [...] on filedocumented in this encounter Care Teams Wine Steward Relationship Specialty Start Date End Date Adamaris Wolf DO [address] [place] [id number] PCP - General 05/09/17 01/14/23 documented as of this encounter
--- OUTSIDE RECORDS SUMMARY | 2025-08-03 23:50 | XMS_ITS | Clinical Summary ---
Author Organization [facility] Address [address] [facility] [address] [place] [address] Phone Care Team Providers Care Telemetry Rn Name Role Phone Pcp, Not Required Primary Care Provider Unavaila ble Allergies No known active allergies Medications sertraline (ZOLOFT) 100 MG tablet Take 1 tablet by mouth daily. 10/21/2024 Active cholecalciferol (VITAMIN D3) 10,000 unit tablet Take 10,000 Units by mouth daily. Active Active Problems Problem Noted Date Diagnosed Date Flank pain 10/06/2024 Hypercalcemia 07/20/2024 Gastroesophageal reflux disease 07/15/2024 Chronic sore throat 04/29/2024 PCOS (polycystic ovarian syndrome) 11/10/2023 Assessment & Plan (11/11/2024 10:06 AM EST): -discussed diagnosis of PCOS, through [place] criteria (1. Anovulation, 2. Polycystic appearing ovaries on US, 3. Hyperandrogenism) must meet 2/3 criteria. -pt reports hirsutism and irregular menses. Ov cysts found on recent u/s. -rev management of PCOS through management of menses, & importance of endometrial protection discussed at length -options rev for management of PCOS including OCP, LIUD, nexplanon, ring, depo, cycling w/ provera if amenorrheic >90 days -rev increased risk for metabolic syndrome & insulin resistance, should see PCP annually -discussed barriers to fertility with PCOS -Pt reports more than 4 menses/year. -Declines control at this time- pt fine with irregular menses and not currently sexually active. -If menses become even less often pt knows to make f/u appt for control initiation. -monthly BSE advised -condoms for sti prevention -RTC for AE or sooner prn Menstrual periods irregular 09/19/2023 Family history of malignant neoplasm of colon in relative diagnosed when younger than 50 years of age 0401/23/2023 Overview (11/11/2024): Patient reports that her paternal grandmother was diagnosed with colon cancer at age of 43. Migraine with aura and witho ut status migrainosus, not intractable 07/25/2020 Abnormal facial hair 05/01/2020 Benign pigmented mole 05/01/2020 Allergies 04/19/2020 Anxiety 04/17/2020 Overview (11/11/2024): NICOLE-7 Assessment: Feeling nervous, anxious or on [...] days NICOLE 7 Total Score: (!) 13 Major depressive disorder 04/17/2020 Overview (11/11/2024): Depression screen: May 01, 2020 NICOLE-7 8 [...] any new symptoms appear. Continue to monitor. Resolved Problems Problem Noted Date Diagnosed Date Resolved Date Annual physical exam 07/15/2024 025 Acute pharyngitis 04/29/2024 11/11/2024 Pharyngitis due to Streptococcus species 04/29/2024 11/11/2024 Amenorrhea 07/28/2023 11/11/2024 Nausea 07/28/2023 11/11/2024 Other fatigue 07/28/2023 11/11/2024 Post viral syndrome 07/28/2023 11/11/19 Sprain of anterior talofibul ar ligament of left ankle 06/27/2023 11/11/2024 Viral upper respiratory tract infection 06/26/2023 11/11/2024 Arthralgia of left ankle 06/22/2023 Cough 06/22/2023 11/11/2024 Intermittent chest pain 06/22/202310/30 Tendinosis of left knee 03/08/202110/30 Frontal headache 04/19/2020 11/11/2024 Immunizations Immunization Administration Dates Next Due COVID-19 (Pre) Moderna Vaccine, Bivalent 6mo+ 08/25/2022 COVID-19 (Pre) Pfizer Vaccine, mRNA, PF 09/14/2021,11/14/2020,10/24/2020 COVID-19 Pfizer Comirnaty Vaccine 12+ 06/02/2024 DTP 05/09/1997, 3,02/08/1992,12/09,1991 DTaP 05/09/1997, 3,02/08/1992,12/09,1991 [id number] 11/13/1992, 2,1991,10/11 Hepatitis B 05/09/1997, 6,01/19/1996,09/08 INFLUENZA, SPLIT VIRUS, TRIV ALENT W/ PRESERVATIVE IM 07/12/2011,07/24/2007 Influenza Quadrivalent Prese rvative Free IM 08/18/2023,08/25/2022,05/23/2020 Influenza Recombinant Lety valent Preservative Free IM 07/19/2021 Influenza Trivalent MDCK Pre servative Free IM 06/02/2024 Influenza, Unspecified Formulation 06/13/2020 MMR 01/19/1996,11/13/1992,1991 Meningococcal MCV4P 07/24/2007 Polio - OPV 05/09/1997, 3,1991,10/11 Td (adult),2 Lf Tetanus Toxo id, PF, Adsorbed 02/03/2003 Tdap 05/01/2020,07/24/2007 Varicella 08/03/2008,12/06/1999 Family History Medical History Relation Comments Colon cancer Paternal Grandmother Breast cancer Neg Hx Deep vein thrombosis Neg Hx Ovarian cancer Neg Hx Stroke Neg Hx Uterine cancer Neg Hx Relation Status Comments Father Alive Mother Alive Paternal Grandmother Social History Tobacco Use Types Packs/Day Years Used Date Smoking Tobacco: Never Smokeless Tobacco: Never Tobacco Cessation:Counseling Given: Not Answered Alcohol Use Standard Drinks/Week Comments Yes 0 (1 standard drink = 0.6 oz pur e alcohol) occ Education Answer Date Recorded Are you interested in more education? Not on miky e 10/15/2024 Are you concerned about learning? Not on file 10/15/2024 No 10/15/2024 No 10/15/2024 Digital Access Answer Date Recorded No 10/15/2024 No 10/15/2024 Reliable internet access at home? Not on file 10/15/2024 Device with a working camera? 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 Not on file No t on file Not on file Last Filed Vital Signs Vital Sign Reading Time Taken Comments Blood Pressure 149/91 11/10/2024 4:08 PM EST Pulse - - Temperature - - Respiratory Rate - - Oxygen Saturation - - Inhaled Oxygen Concentration - - Weight 91.6 kg (202 lb) 11/10/2024 4:08 PM EST Height - - Body Mass Index - - Plan of Treatment Health Maintenance Due Date Last Done Comments DEPRESSION SCREENING 2003 HIV ONE-TIME SCREENING (18-65 YEARS) 2009 HEPATITIS A VACCINES (1 of 2 - Risk 2-dose series) 2010 PAP SMEAR 2012 INFLUENZA VACCINE (#1) 2025 , 08/18/2023, 08/25/2022, Additional history exists COVID-19 VACCINE (2024- season) 2025 06/02/2024, 08/25/2022, 09/14/2021, Additional history exists Adult Td,Tdap Booster 05/01/2030 05/01/2020 , 07/24/2007, 02/03/2003 HIB VACCINES Completed 11/13/1992, 01/27, 1991, Additional history exists MENINGOCOCCAL VACCINES (ACWY) Aged Out 07/24/2007 No longer eligible based on patient's age to complete this topic HEPATITIS C SCREENING Completed 07/15/2024 SMOKING STATUS SCREENING (Once After 26 Yrs) Completed 11/10/2024 MENINGOCOCCAL VACCINES (B) Aged Out N o longer eligible based on patient's age to complete this topic PNEUMOCOCCAL VACCINES (0-49 years) Aged Out No longer eligible based on patient's age to complete this topic Medical Devices Not on file [place] [address] [address] [employer] Care Teams Telemetry Rn Relationship Specialty Start Date End Date Pcp, Not Required [address] [place] [phone] PCP - General 11/05/24 Additional Source Comments The information contained in this document represents components of the legal health record. It is not the complete legal health record.[facility]
--- OUTSIDE RECORDS SUMMARY | 2025-08-03 23:50 | XMS_ITS | Encounter Summary ---
Author Organization [facility] Address [address] [place] [address] Care Team Providers Care Application Development Intern Name Role Phone Kelsy Ortiz MD Primary Care Provider + Reason for Referral * Diagnostic Imaging (Routine) - Closed Specialty Diagnoses / Procedures Referred By Contac t Referred To Contact Diagnoses Hydronephrosis, unspecified hydronephrosis type Procedures US Kidney and Bladder Rafa Mares MD Phone: tel: fax: Referral ID Status Reason Start Date Expiration Date Visits Re quested Visits Authorized [id number] Closed 10/15/2022 04/15/2024 1 1 Encounter Details Date Type Department Care Team (Latest Contact Info) Description 10/15/2022 Community Orders [facility] Link [address] [place] [address] Rafa Mares MD [address] [place] [address] [place] [phone] Hydronephrosis, unspecified hydronephrosis type (Primary Dx) Social [...] 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 * US Kidney and Bladder (10/22/2022 3:31 PM EST) Anatomical Region Laterality Modality Body N/A Ultrasound 10/22/2022 4:12 PM EST Impressions 10/22/2022 4:15 PM EST Normal sonographic appearance of the kidneys and bladder. If this radiology report contains a blank impression section, it is an incomplete radiology report. Please contact the interpreting radiologist or applicable radiology division as soon as possible to obtain the completed interpretation. Workstation ID: [id number] Narrative 10/22/2022 4:15 PM EST EXAMINATION: Ultrasound [...] demonstrable post void residual in the bladder. Bilateral ureteral jets demonstrated. No shadowing stone in the bladder. Resulting Agency Comment [id number] Procedure Note Micheal Hahn MD - 10/22/2022 [...] possible to obtain thecompleted interpretation. Workstation ID: [id number] [facility] Vishal Mares MD IMG US PROCEDURES Joselyn l Result documented in this encounter Visit Diagnoses Diagnosis Hydronephrosis, unspecified hydronephrosis type- Primary Hydronephrosis, unspecified hydronephrosis type documented in this encounter Care Teams Application Development Intern Relationship Specialty Start Date End Date Kelsy Ortiz MD [address] [place] [address] PCP - General 03/29/25 documented as of this encounter
[2025-08-04 00:54] VITALS: BP 146/88; PULSE 81; RESP 20; TEMP 36.4; O2SAT 97
== END 2025-08-04 00:59 | disposition home or self-care (01) ==
PROVIDERS: Emergency Provider Emergency Medicine
DX: S61.012A Laceration without foreign body of left thumb without damage to nail, initial encounter (principal); W26.0XXA Contact with knife, initial encounter; Y93.G3 Activity, cooking and baking; Y92.000 Kitchen of unspecified non-institutional (private) residence as the place of occurrence of the external cause; Z23 Encounter for immunization
CPT/HCPCS: 12001; 73140; 90471; 90715; 99282; 99283; J2003

== ENCOUNTER → 2025-08-03 20:10 | Outpatient (BNV) | payer OTHER, SELFPAY | PROVIDERS: Visit Provider Radiology Diagnostic Radiology | DX: S61.012A Laceration without foreign body of left thumb without damage to nail, initial encounter (principal) | CPT/HCPCS: 73140 ==